=== PATIENT | male | born 1935 | race Caucasian/White ===

== ENCOUNTER 2018-06-06 18:40 | Inpatient (IN) | payer OTHER ==
[~2018-06-06] VITALS: Ht 162.6 cm; Wt 63.6 kg
[~2018-06-06 18:40] MED LIST: CALCIUM600 M3 PO; GLIPIZIDE5 M2 PO; LISINOPRIL5 M1 PO; METFORMIN HCL1000 M1 PO; METOPROLOL SUCC50 M2 PO; SIMVASTATIN10 M1 PO; VITAMIN B-121000 MC3 PO; VITAMIN C500 M7 PO; VITAMIN D31000 UNI1 PO; WARFARIN SODIUM5 M1 PO
[2018-06-06 20:48] LABS: ABSOLUTE BASOPHIL COUNT 0 /CUMM (0.0-0.2); ABSOLUTE EOSINOPHIL COUNT 0.1 /CUMM (0.0-0.7); ABSOLUTE GRANULOCYTE CT 5.3 /CUMM (1.4-6.5); ABSOLUTE LYMPH COUNT 0.4 /CUMM (1.2-3.4); ABSOLUTE MONOCYTE COUNT 0.8 /CUMM (0.10-0.60); BASOPHIL % 0.1 % (0.0-2.0); EOSINOPHIL % 1.4 % (0-5); GRANULOCYTE % 79.2 % (42.2-75.2); HEMATOCRIT 31.9 % (42-52); MEAN CORPUSCULAR HGB 31.1 PG (27.0-31.0); MEAN CORPUSCULAR HGB CONC 33.8 G/DL (33.0-37.0); MEAN CORPUSCULAR VOLUME 92.1 FL (80.0-94.0); MEAN PLATELET VOLUME 7.3 FL (7.4-10.4); PLATELET COUNT 272 /CUMM (130-400); RBC DISTRIBUTION WIDTH 17.1 % (11.5-14.5); RED BLOOD CELL CT 3.46 /CUMM (4.70-6.10); WHITE BLOOD CELL COUNT 6.7 /CUMM (4.8-10.8)
[2018-06-06 21:21] LABS: PT 28.9 SEC (9.4-12.5); PTT 35 SEC (25-37)
[2018-06-06] MEDS ORDERED: LOPERAMIDE2 M2 PO (21:25)
[2018-06-06] MEDS ORDERED: FUROSEMIDE20 M1 PO (21:25)
[2018-06-06] MEDS ORDERED: MULTIVITAMINS1 EAC9 PO (21:26)
[2018-06-06] MEDS ORDERED: CALCIUM600 M3 PO (21:26)
[2018-06-06] MEDS ORDERED: POTASSIUM CHLO10 ME4 PO (21:28)
--- NOTE | 2018-06-06 22:52 | ED GENERAL ADULT ---
History of Present Illness General Chief Complaint: General Adult Stated Complaint: BURNING W/URINATION,ABD PAIN,DIARRHEA Source: patient, family Exam Limitations: no limitations Vital Signs & Intake/Output Vital Signs & Intake/Output Vital Signs Date Time Temp Pulse Resp B/P B/P Pulse O2 O2 Flow FiO2 Mean Ox Delivery Rate 06/06 2258 98.6 65 20 115/73 97 Room Air 06/06 2051 98.0 88 16 123/67 96 06/06 1847 96.5 75 18 122/78 96 Room Air Allergies Coded Allergies: NO KNOWN ALLERGIES (12/03/11) Reconcile Medications Calcium (Elemental-Fr Calcarb) (Calcium) (Unknown Strength) TABLET (Unknown Dose) PO DAILY SUPPLEMENT (Reported) Furosemide 20 MG TABLET 1 TAB PO DAILY DIURETIC (Reported) Glipizide 5 MG TABLET 1 TAB PO BID DM (Reported) Lisinopril 5 MG TABLET 1 TAB PO DAILY HTN (Reported) Loperamide HCl (Loperamide) 2 MG CAPSULE 1 CAP PO DAILY STOOLS (Reported) Metformin HCl 1,000 MG TABLET 1 TAB PO BID DM (Reported) Metoprolol Succinate 50 MG TAB.ER.24H 1 TAB PO DAILY HEART/BP (Reported) Multiple Vitamin (Multivitamins) 1 EACH TABLET 1 TAB PO DAILY SUPPLEMENT ( Reported) Potassium Chloride (Unknown Strength) TABLET.ER (Unknown Dose) UNKNOWN ( Reported) Warfarin Sodium 5 MG TABLET 1 TAB PO DAILY BLOOD THINNER (Reported) Triage Note: 83M WITH IRREGULARITY W URINATION FOR A WHILE AND DIARRHEA SINCE YESTERDAY. DENIES FEVER. HAD HEMATURIA A WEEK AGO, HAD U/S W DR RODRIGUEZ WHICH CAME BACK OK. REPORTS THAT THE URGE TO VOID AND THE PAIN W VOIDING. Triage Nurses Notes Reviewed? yes Onset: Gradual Duration: day(s): Timing: constant HPI: 83-year-old male with a history of A. fib (on Coumadin), hypertension, hyperlipidemia, diabetes presenting with dysuria, hematuria, and decreased urinary output 1 week. Patient now has watery diarrhea since yesterday. Reports 7 episodes of diarrhea since yesterday. Denies fevers, abdominal pain, nausea, vomiting, melena, hematochezia. No recent travel, sick contacts, antibiotic use, hospitalizations, or foul foods. Denies chest pain or shortness of breath. (Chay ADLER,Irene) Past History Travel History Traveled to [place] past 21 day No Medical History Any Pertinent Medical History? see below for history Cardiovascular: AFIB, hypertension, hyperlipidemia Endocrine: diabetes Cancer(s): MELANOMA ; PROSTATE Tetanus Vaccine: 12/21/17 Surgical History Surgical History: non-contributory Psychosocial History Who do you live with Spouse What is your primary language Northern Irish Tobacco Use: Quit >30 days ago ETOH Use: denies use Family History Hx Contributory? No (Irene Kingsley) Review of Systems Review of Systems Constitutional: Reports: no symptoms. EENTM: Reports: no symptoms. Respiratory: Reports: no symptoms. Cardiovascular: Reports: no symptoms. GI: Reports: see HPI. Genitourinary: Reports: see HPI. Musculoskeletal: Reports: no symptoms. Skin: Reports: no symptoms. Neurological/Psychological: Reports: no symptoms. Hematologic/Endocrine: Reports: no symptoms. Immunologic/Allergic: Reports: no symptoms. All Other Systems: Reviewed and Negative (Irene Kingsley) Physical Exam Physical Exam General Appearance: well developed/nourished, no apparent distress, alert, awake , comfortable Comments: Gen.: Well-nourished, well-developed, no acute distress. Head: Normocephalic, atraumatic. Eyes: Normal inspection bilaterally Ears: Normal inspection bilaterally Nose: Normal inspection Neck: Normal inspection Lungs: clear to auscultation bilaterally, normnal breath sounds Heart: Regular rate, irregular rhythm Abdomen: soft and non-tender Back: No CVA tenderness Rectal exam, brown guaiac negative stool Extremities: Normal inspection Neurologic: alert and oriented x3, steady gait Skin: warm and dry Psychiatric: Normal mood and affect, no apparent delusions or hallucinations, behavior appropriate Core Measures ACS in differential dx? No CVA/TIA Diagnosis: No Sepsis Present: No Sepsis Focused Exam Completed? No (Irene Kingsley) Progress Differential Diagnoses I considered the following diagnoses in my evaluation of the patient: [UTI versus pyelonephritis versus BPH versus viral colitis/enteritis versus bacterial colitis/enteritis versus GI bleed vs sepsis] Plan of Care: Orders Procedure Date/time Status Consistent Carbohydrate 2 06/07 B Active LACTIC ACID 06/06 2308 Active OXYGEN SETUP (GEN) 06/06 2241 Active Saline Lock 06/06 2241 Active Admit to inpatient 06/06 2241 Active Patient Data 08/18 2241 Active Activity/Ambulation 06/06 2241 Active Code Status 06/06 2241 Active XRY-CHEST XRAY, TWO VIEWS 06/06 2200 Active Add-on Test (ER Only) 06/06 2157 Active Saline Lock 06/06 2125 Active Add-on Test (ER Only) 06/06 2125 Active Vital Signs 06/06 2125 Active Telemetry/Side Laster Tack 06/06 2125 Active BLOOD CULTURE 06/06 2125 Active EKG 06/06 2125 Active Add-on Test (ER Only) 06/06 2103 Active Intake & Output 06/06 2045 Active PARTIAL THROMBOPLASTIN TIME 06/06 2044 Complete PROTHROMBIN TIME 06/06 2044 Complete CULTURE,URINE 06/06 2041 Active TROPONIN LEVEL 06/06 2034 Complete B-TYPE NATRIURETIC PEP (BNP) 06/06 2034 Complete URINALYSIS 06/06 2008 Complete LIPASE 06/06 2008 Complete LACTIC ACID 06/06 2008 Complete COMPREHENSIVE METABOLIC PANEL 06/06 2008 Complete CBC WITHOUT DIFFERENTIAL 06/06 2008 Complete Current Medications Sig/Vic Start time Last Medication Dose Stop Time Status Admin Sodium Chloride 1,769.01 ML ONCE 06/06 2130 AC (Normal Saline 0.9%) Laboratory Tests 06/06/182043: PT 28.9 H, INR 2.63 H, APTT 35 06/06/182040: Urine Color YEL, Urine Clarity CLDY H, Urine pH 6.0, Ur Specific [place] 1.020, Urine Protein 30 H, Urine Ketones NEG, Urine Nitrite POS H, Urine Bilirubin NEG, Urine Urobilinogen 0.2, Ur Leukocyte Esterase LARGE H, Ur Microscopic SEDIMENT EXAMINED, Urine RBC 1-3, Urine WBC > 75 H, Urine Bacteria FEW H, Urine Hemoglobin MOD H, Urine Glucose NEG 06/06/182033: Anion Gap 16, Estimated GFR 32 L, BUN/Creatinine Ratio 34.5 H, Glucose 88, Lactic Acid 3.1 H, Calcium 9.6, Total Bilirubin 0.7, AST 24, ALT 36, Alkaline Phosphatase 63, Troponin I 0.12 *H, Ibe-R-Libnteejahx Pept 01173 H, Total Protein 7.6, Albumin 4.4, Globulin 3.2, Albumin/Globulin Ratio 1.4, Lipase 59, CBC w Diff NO MAN DIFF REQ, RBC 3.46 L, MCV 92.1, MCH 31.1 H, MCHC 33.8, RDW 17.1 H, MPV 7.3 L, Gran % 79.2 H, Lymphocytes % 6.6 L, Monocytes % 12.7 H, Eosinophils % 1.4, Basophils % 0.1, Absolute Granulocytes 5.3, Absolute Lymphocytes 0.4 L, Absolute Monocytes 0.8 H, Absolute Eosinophils 0.1, Absolute Basophils 0 Microbiology 06/06 2149 BLOOD: Blood Culture - RECD 06/06 2135 BLOOD: Blood Culture - RECD 06/06 2041 URINE ROUT: Urine Culture - RECD EKG shows rate controlled A. fib in the 60s, troponin elevated to 0.12. Patient denies any chest pain or shortness of breath. His INR is therapeutic and he was given 325 mg of aspirin. He is followed by Dr. Torres for cardiology. Discussed with Dr. Thurston who is covering for Dr. Torres. Urine is suspicious for UTI, covered with ceftriaxone and urine culture sent, BC 's sent. Lactic acid elevated to 3.1. Given fluid boluses and will recheck. Labs also show acute worsening of renal function with a creatinine of 2.0. Elevated BNP at over 33,000, family denies any known history of prior CHF, but does state he is currently on 20 mg of Lasix which he takes daily. Lungs are clear, patient denies any shortness of breath. Low concern for acute failure. Patient will be admitted to telemetry. Initial ED EKG: AFIB (Irene Kingsley) Departure Departure Disposition: STILL A PATIENT Condition: Stable Clinical Impression Primary Impression: UTI (urinary tract infection) Secondary Impressions: QUINTIN (acute kidney injury), Elevated brain natriuretic peptide (BNP) level, Elevated troponin Referrals: Nivia ROSEN,Lisy Owen (PCP/Family) Departure Forms: Customer Survey General Discharge Information Admission Note Spoke With: Nixon Cerda MD Documentation of Exam: Documentation of any treatments & extenuating circumstances including Concerns Regarding Discharge (functional status, medication knowledge or non-compliance, living conditions, etc.) that warrant an admission rather than observation: [ Hemodynamic monitoring, telemetry monitoring, serial EKGs, serial troponins, cardiology consultation, IV antibiotics, follow-up urine cultures, IV fluids, serial chemistries, urology consultation] (Irene Kingsley) PA/EDGE GRINDER MACHINE Co-Sign Statement Statement: ED Attending supervision documentation- x I saw and evaluated the patient. I have also reviewed all the pertinent lab results and diagnostic results. I agree with the findings and the plan of care as documented in the PA's/EDGE GRINDER MACHINE's documentation. Generalized weakness fever dysuria hematuria diarrhea with QUINTIN, hyperkalemia, UTI. elevated troponn [] I have reviewed the ED Record and agree with the PA's/EDGE GR[employer]ER MACHINE's documentation. [] Additions or exceptions (if any) to the PAs/EDGE GRINDER MACHINE's note and plan are summarized below: [] (Jairon ROSEN,Christopher) Critical Care Note Critical Care Note Critical Care Time: non-applicable (Chay ADLER,Irene)
--- NOTE | 2018-06-06 22:52 | History & Physical ---
Sandeep Velez 06/06/18 2256: General Information and HPI MD Statement: I have seen and personally examined JERE LEVINE and documented this H&P. The patient is a 83 year old M who presented with a patient stated chief complaint of URINATION PAIN AND DIFFICULTY. Source of Information: patient, family, old records Exam Limitations: poor historian (patient and family) History of Present Illness: 83-year-old male past medical history of atrial fibrillation, hypertension, hyperlipidemia, diabetes, melanoma, prostate cancer who presents for decreased urinary output and pain for 2 months and new onset watery diarrhea for the past 2 days. The symptoms started with urinary urgency and frequency which was evaluated by Dr. Ngo as outpatient. The patient also noticed some blood in his urine. Patient was started on Flomax at the end of April; after no improvement he stopped taking the Flomax and was started on oxybutynin instead. Hematuria had resolved by this visit he was told there was no infection. According to the patient and his family the symptoms have been even worse since starting the oxybutynin. He has been voiding minimal amounts with increased frequency, urgency and dysuria. He denies history of UTI or stones in the past, denies fevers, chills, flank pain, or other symptoms. Patient does report becoming anxious about his urinary symptoms. With regards to diarrhea, patient denies any recent antibiotics, abdominal pain, hospitalizations, or sick contacts. In the ED, patient was found to have AK on CKD. His BMP was elevated to 34,000, troponin positive at 0.12, lactic acid 3.1, and urinalysis suggestive of infection. Patient was admitted to telemetry for UTI and elevated troponins. Allergies/Medications Compliance With Home Meds: GOOD Past History Travel History Traveled to [place] past 21 day No Medical History Cardiovascular: AFIB, hypertension, hyperlipidemia Endocrine: diabetes Cancer(s): MELANOMA ; PROSTATE Tetanus Vaccine: 12/21/17 Surgical History Surgical History: non-contributory Past Family/Social History Family History Relations & Conditions if any FATHER FH: kidney failure BROTHER FH: myocardial infarction Psychosocial History ETOH Use: denies use Functional Ability ADLs Independent: dressing, eating, toileting, bathing. Ambulation: cane IADLs Independent: shopping, housework, finances, food prep, telephone. Needs Assist: transportation, medication admin. 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 Exam & Diagnostic Data Last 24 Hrs of Vital Signs/I&O Vital Signs Date Time Temp Pulse Resp B/P B/P Pulse O2 O2 Flow FiO2 Mean Ox Delivery Rate 06/07 0059 97.8 73 20 148/72 94 Room Air 06/06 2258 98.6 65 20 115/73 97 Room Air 06/061 98.0 88 16 123/67 96 06/06 1847 96.5 75 18 122/78 96 Room Air Intake & Output 06/07 0800 06/07 0000 06/06 1600 Intake Total 1000 Output Total 100 Balance 900 Intake, IV 1000 Output, Urine 100 Patient 139 lb 130 lb Weight Weight Bed scale Measurement Method Physical Exam General Appearance Alert, Oriented X3, No Acute Distress Skin No Rashes, No Breakdown, No Significant Lesion Skin Temp/Moisture Exam: Warm/Dry HEENT Atraumatic, PERRLA, EOMI Neck Supple, No JVD, No thryomegaly Cardiovascular Regular Rate, Normal S1, Normal S2 Lungs Clear to Auscultation, Normal Air Movement Abdomen Normal Bowel Sounds, Soft, No Tenderness Neurological Normal Gait, Normal Speech Last 24 Hrs of Labs/Torres: Laboratory Tests 06/07/18 0635: CBC w Diff Pending, WBC Pending, RBC Pending, Hgb Pending, Hct Pending, MCV Pending, MCH Pending, MCHC Pending, RDW Pending, Plt Count Pending, MPV Pending 06/07/18 0115: Troponin I 0.13 *H 06/06/18 2311: Lactic Acid 2.2 H 06/06/182043: PT 28.9 H, INR 2.63 H, APTT 35 06/06/182040: Urine Color YEL, Urine Clarity CLDY H, Urine pH 6.0, Ur Specific [place] 1.020, Urine Protein 30 H, Urine Ketones NEG, Urine Nitrite POS H, Urine Bilirubin NEG, Urine Urobilinogen 0.2, Ur Leukocyte Esterase LARGE H, Ur Microscopic SEDIMENT EXAMINED, Urine RBC 1-3, Urine WBC > 75 H, Urine Bacteria FEW H, Urine Hemoglobin MOD H, Urine Glucose NEG 06/06/182033: Anion Gap 16, Estimated GFR 32 L, BUN/Creatinine Ratio 34.5 H, Glucose 88, Lactic Acid 3.1 H, Calcium 9.6, Total Bilirubin 0.7, AST 24, ALT 36, Alkaline Phosphatase 63, Troponin I 0.12 *H, [id number] Pept 56765 H, Total Protein 7.6, Albumin 4.4, Globulin 3.2, Albumin/Globulin Ratio 1.4, Lipase 59, CBC w Diff NO MAN DIFF REQ, RBC 3.46 L, MCV 92.1, MCH 31.1 H, MCHC 33.8, RDW 17.1 H, MPV 7.3 L, Gran % 79.2 H, Lymphocytes % 6.6 L, Monocytes % 12.7 H, Eosinophils % 1.4, Basophils % 0.1, Absolute Granulocytes 5.3, Absolute Lymphocytes 0.4 L, Absolute Monocytes 0.8 H, Absolute Eosinophils 0.1, Absolute Basophils 0 Microbiology 06/07 0544 STOOL: Clostridium difficile Toxin A & B - ORD 06/06 2149 BLOOD: Blood Culture - RECD 06/06 2135 BLOOD: Blood Culture - RECD 06/06 2041 URINE ROUT: Urine Culture - RECD Diagnostic Data EKG Results Rate controlled Afib in 60s CXR Results Stable mildly enlarged cardiac silhouette. No acute airspace disease. Other Results Abd US - Nonspecific stranding about the urinary bladder wall. There is mild urinary bladder wall thickening in the setting of a partially filled urinary bladder. This is nonspecific, though consider correlation with urinalysis to evaluate for signs of cystitis. Sigmoid diverticulosis without evidence of diverticulitis. Abdominal aortic aneurysm with an aortobifemoral stent in place. Assessment/Plan Assessment: 83-year-old male past medical history of atrial fibrillation, hypertension, hyperlipidemia, diabetes, melanoma, prostate cancer who presents for decreased urinary output and pain for 2 months and new onset watery diarrhea for the past 2 days. Problem list/plan: Urinary tract infection Diarrhea QUINTIN on CKD -Creatinine to 2.0 over baseline 1.5 -Bladder ultrasound <200cc retained urine post void -Avoid nephrotoxins -Check urine lytes and FeNa -1 L NS ordered -F/U renal function tests Hyperkalemia -Mildly elevated; follow up in am Chronic conditions - HTN, HLD, DM -Continue home medicines except for lasix -Accuchecks TIDAC/HS -Hold metformin, glipizide -SS insulin DVT prophylaxis: On coumadin, ALPS Heart healthy diet Patient is full code As Ranked By This Provider Problem List: 1. QUINTIN (acute kidney injury) 2. UTI (urinary tract infection) 3. Elevated troponin Core Measures/Misc (07/06) Acute Coronary Syndrome ACS Diagnosis: Yes Last Known EF % 55 Congestive Heart Failure Congestive Heart Failure Diagnosis No Cerebrovascular Accident CVA/TIA Diagnosis: No VTE (View Protocol) VTE Risk Factors Age>40 No Mechanical VTE Prophylaxis d/t N/A MechProphylax Ordered No VTE Pharm Prophylaxis d/t NA PharmProphylax ordered Sepsis (View protocol) Sepsis Present: No If YES complete Sepsis Event Note If YES complete Sepsis Event Note Flavio Kenney MD 06/07/18 0008: General Information and HPI MD Statement: I have seen and personally examined JERE LEVINE and documented this H&P. The patient is a 83 year old M who presented with a patient stated chief complaint of difficulty urinating. Source of Information: patient, family, old records Exam Limitations: no limitations History of Present Illness: 83 year old male with PMH significant for atrial fibrillation on coumadin s/p PPM 2013, HTN, HLD, DM, CAD s/p CABG ~1999, TIA, AAA repair, and prostate cancer s/p radiation ~5-6 years ago presents with complaints of dysuria and frequency. The patient's symptoms have been present for aprroximately 1-2 months and worsening. He started with urinary urgency and frequency which was evaluated by Dr. Ngo as an outpatient. He also had noted some hematuria. Dr. Ngo started him on tamsulosin at the end of April. After no improvement in his symptoms after 7-10 days, he stopped taking the flomax and was started on oxybutynin 5mg po bid. Reportedly, the hematuria had resolved by this visit with Dr. Ngo and he was told that there was no infection. He also reportedly had an ultrasound that was unremarkable. According to the patient, his symptoms have been even worse since starting the ditropan. He has been voiding minimal amounts with increasing frequency, urgency, and dysuria. He denied any history of stones or urinary tract infections in the past. He denies any fevers, chills , flank pain, or other symptoms on review of systems. He had radiation therapy for his prostate cancer with Dr. Carpenter at [facility] but was unable to provide anymore details. He has had no chest pain, palpitations, or dyspnea. He does report becoming extremely anxious from his urinary symptoms. He also has developed diarrhea that started yesterday, watery, approximately seven episodes. He denies any recent anitbiotics or abdominal pain. In the ED, his labs were notable for anemia, hyperkalemia, and acute kidney injury (creatinine elevated to 2.0 with baseline of 1.5). His proBNP was elevated to 34,000, troponin positive at 0.12, lactic acid 3.1 and urinalysis cloudy, >75 WBCs, + nitrite and leukocyte esterase. He was treated with aspirin 325mg, NS x 500c, and ceftriaxone 1g and admitted to telemetry for urinary tract infection and elevated troponins. Allergies/Medications Compliance With Home Meds: GOOD Past History Travel History Traveled to [facility] past 21 day No Medical History Neurological: TIA Cardiovascular: aortic aneurysm, AFIB, CAD, hypertension, hyperlipidemia, myocardial infarction Renal: chronic kidney disease Endocrine: diabetes Cancer(s): melanoma, prostate cancer Surgical History Surgical History: CABG, AAA repair Past Family/Social History Psychosocial History Where do you live? Home Who Do You Live With? spouse Services at Home: None Primary Language: Norwegian Smoking Status: Never Smoked ETOH Use: denies use Illicit Drug Use: denies illicit drug use Functional Ability ADLs Independent: dressing, eating, toileting, bathing. Ambulation: cane IADLs Needs Assist: transportation, medication admin. 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 Denies: chills, fever. EENTM: Reports: no symptoms. Cardiovascular: Denies: chest pain, orthopena, palpitations. Respiratory: Denies: cough, short of breath, sputum production. GI: Reports: diarrhea. Denies: abdominal pain, melena, nausea, vomiting. Genitourinary: Reports: dysuria, frequency, hematuria, hesitation, nocturia, pain, urgency. Musculoskeletal: Reports: no symptoms. Skin: Reports: no symptoms. Neurological/Psychological: Reports: no symptoms. Hematologic/Endocrine: Reports: no symptoms. Immunologic/Allergic: Reports: no symptoms. All Other Systems: Reviewed and Negative Exam & Diagnostic Data Last 24 Hrs of Vital Signs/I&O Vital Signs Date Time Temp Pulse Resp B/P B/P Pulse O2 O2 Flow FiO2 Mean Ox Delivery Rate 06/07 0059 97.8 73 20 148/72 94 Room Air 06/06 2258 98.6 65 20 115/73 97 Room Air 06/06 2051 98.0 88 16 123/67 96 06/06 1847 96.5 75 18 122/78 96 Room Air Intake & Output 06/07 0800 06/07 0000 06/06 1600 Intake Total 1000 Output Total 100 Balance 900 Intake, IV 1000 Output, Urine 100 Patient 63.049 kg 58.967 kg Weight Weight Bed scale Measurement Method Physical Exam General Appearance Alert, Oriented X3, Cooperative, No Acute Distress Skin Temp/Moisture Exam: Warm/Dry Sepsis Skin Exam (color): Normal for Ethnicity HEENT Atraumatic, PERRLA, EOMI Neck Supple, No JVD Cardiovascular Normal S1, Normal S2, irregular rhythm, PPM LCW Lungs Clear to Auscultation, Normal Air Movement Abdomen Normal Bowel Sounds, Soft, No Tenderness, No Masses Neurological Normal Speech, Strength at 5/5 X4 Ext, Normal Tone Extremities No Clubbing, No Cyanosis, No Edema, Normal Pulses Last 24 Hrs of Labs/Torres: Laboratory Tests 06/07/18 0115: Troponin I 0.13 *H 06/06/182310: Lactic Acid 2.2 H 06/06/182043: PT 28.9 H, INR 2.63 H, APTT 35 06/06/182040: Urine Color YEL, Urine Clarity CLDY H, Urine pH 6.0, Ur Specific [place] 1.020, Urine Protein 30 H, Urine Ketones NEG, Urine Nitrite POS H, Urine Bilirubin NEG, Urine Urobilinogen 0.2, Ur Leukocyte Esterase LARGE H, Ur Microscopic SEDIMENT EXAMINED, Urine RBC 1-3, Urine WBC > 75 H, Urine Bacteria FEW H, Urine Hemoglobin MOD H, Urine Glucose NEG 06/06/182033: Anion Gap 16, Estimated GFR 32 L, BUN/Creatinine Ratio 34.5 H, Glucose 88, Lactic Acid 3.1 H, Calcium 9.6, Total Bilirubin 0.7, AST 24, ALT 36, Alkaline Phosphatase 63, Troponin I 0.12 *H, [id number] Pept 50870 H, Total Protein 7.6, Albumin 4.4, Globulin 3.2, Albumin/Globulin Ratio 1.4, Lipase 59, CBC w Diff NO MAN DIFF REQ, RBC 3.46 L, MCV 92.1, MCH 31.1 H, MCHC 33.8, RDW 17.1 H, MPV 7.3 L, Gran % 79.2 H, Lymphocytes % 6.6 L, Monocytes % 12.7 H, Eosinophils % 1.4, Basophils % 0.1, Absolute Granulocytes 5.3, Absolute Lymphocytes 0.4 L, Absolute Monocytes 0.8 H, Absolute Eosinophils 0.1, Absolute Basophils 0 Microbiology 06/06 2149 BLOOD: Blood Culture - RECD 06/06 2135 BLOOD: Blood Culture - RECD 06/06 2041 URINE ROUT: Urine Culture - RECD Diagnostic Data EKG Results afib, intermittently A paced, no ischemic changes CXR Results The cardiac silhouette is stable. Intact midline sternal wires are present. Pacer leads are in place. There are neither pleural effusions nor pneumothoraces. There is mild accentuation of interstitial markings. The osseous structures are relatively stable with moderate degenerative change within the thoracic spine. IMPRESSION: Stable mildly enlarged cardiac silhouette. No acute airspace disease. Other Results CT abdomen pelvis without contrast Nonspecific stranding about the urinary bladder wall. There is mild urinary bladder wall thickening in the setting of a partially filled urinary bladder. This is nonspecific, though consider correlation with urinalysis to evaluate for signs of cystitis. Sigmoid diverticulosis without evidence of diverticulitis. Abdominal aortic aneurysm with an aortobifemoral stent in place. Assessment/Plan Assessment: 83 year old male with PMH significant for atrial fibrillation on coumadin s/p PPM 2013, HTN, HLD, DM, CAD s/p CABG ~1999, CKD Stage III, TIA, AAA repair, and prostate cancer s/p radiation ~5-6 years ago presents with complaints of worsening dysuria and urinary frequency and one day history of diarrhea. Urinary tract infection: Worsening urinary symptoms Urinalysis >75WBCs, positive nitrite and leukocyte esterase No fever or CVA tenderess CT abdomen negative for hydronephrosis, perinephric stranding or nephrolithiasis Ceftriaxone 1g IV daily Follow up urine culture and blood cultures Urology consultation with Dr. Ngo History of prostate cancer s/p radiation Elevated troponins: History of CAD s/p CABG Mildly elevated to 0.13 in the setting of infection and elevated creatinine proBNP significantly elevated to 34,000, but no evidence of heart failure, lasix held No acute ischemic EKG changes, give ASA 325mg in the ED No complaints of chest pain or cardiovascular symptoms, possible type II NSTEMI Continue metoprolol XL Add aspirin 81mg and atorvastatin Cardiology consultation with Dr. Wilfred Nogueira Check serial troponins and EKGs to evaluate for myocardial ischemia Consider repeat echocardiogram Acute kidney injury on chronic kidney disease stage III: Creatinine elevated to 2.0, likely prerenal with diarrhea, may be some component of post renal from urinary retention in the setting of infection CT Abdomen Pelvis shows no hydronephrosis Bladder ultrasound < 200cc of retained urine post void Baseline is ~1.5 Avoid nephrotoxins Check urine electrolytes and FeNA 1 liter of normal saline ordered Follow up repeat renal function tests Diarrhea: Check C diff Hyperkalemia: Mildly elevated to 5.4, patient is on a potassium supplement with furosemide at home Hold potassium supplementation Check repeat electrolytes in the morning Atrial fibrillation: s/p 2013 Coumadin per INR Continue metoprolol for rate control HTN: Continue ACEi and metoprolol, lasix on hold HLD: Start statin therapy DM: Accuchecks TIDAC/HS Hold metformin and glipizide Start sliding scale insulin Heart healthy diet DVT ppx-on coumadin Full code As Ranked By This Provider Problem List: 1. QUINTIN (acute kidney injury) 2. Elevated troponin 3. UTI (urinary tract infection) 4. Elevated brain natriuretic peptide (BNP) level Core Measures/Misc (07/06) Acute Coronary Syndrome ACS Diagnosis: Yes Last Known EF % 55 Congestive Heart Failure Congestive Heart Failure Diagnosis No Cerebrovascular Accident CVA/TIA Diagnosis: No VTE (View Protocol) VTE Risk Factors Age>40 No Mechanical VTE Prophylaxis d/t N/A MechProphylax Ordered No VTE Pharm Prophylaxis d/t NA PharmProphylax ordered Sepsis (View protocol) Sepsis Present: No If YES complete Sepsis Event Note If YES complete Sepsis Event Note [place] 06/07/18 0352: General Information and HPI Statement: I have seen and personally examined JERE LEVINE and documented this H&P. The patient is a 83 year old M who presented with a patient stated chief complaint of []. Source of Information: family, old records Allergies/Medications Allergies: Coded Allergies: NO KNOWN ALLERGIES (12/03/11) Home Med list Calcium (Elemental-Fr Calcarb) (Calcium) (Unknown Strength) TABLET (Unknown Dose) PO DAILY SUPPLEMENT (Reported) Furosemide 20 MG TABLET 1 TAB PO DAILY DIURETIC (Reported) Glipizide 5 MG TABLET 1 TAB PO BID DM (Reported) Lisinopril 5 MG TABLET 1 TAB PO DAILY HTN (Reported) Loperamide HCl (Loperamide) 2 MG CAPSULE 1 CAP PO DAILY STOOLS (Reported) Metformin HCl 1,000 MG TABLET 1 TAB PO BID DM (Reported) Metoprolol Succinate 50 MG TAB.ER.24H 1 TAB PO DAILY HEART/BP (Reported) Multiple Vitamin (Multivitamins) 1 EACH TABLET 1 TAB PO DAILY SUPPLEMENT ( Reported) Potassium Chloride (Unknown Strength) TABLET.ER 10 MEQ PO DAILY SUPPLEMENT ( Reported) Warfarin Sodium 5 MG TABLET 1 TAB PO DAILY BLOOD THINNER (Reported) Past History Medical History Cardiovascular: AFIB, hypertension, hyperlipidemia Endocrine: diabetes Cancer(s): NONE Past Family/Social History Psychosocial History Smoking Status: Former Smoker ETOH Use: denies use Illicit Drug Use: denies illicit drug use Review of Systems Review of Systems Constitutional: Reports: see HPI. Exam & Diagnostic Data Last 24 Hrs of Vital Signs/I&O Vital Signs Date Time Temp Pulse Resp B/P B/P Pulse O2 O2 Flow FiO2 Mean Ox Delivery Rate 06/07 0059 97.8 73 20 148/72 94 Room Air 06/06 2258 98.6 65 20 115/73 97 Room Air 06/06 2051 98.0 88 16 123/67 96 06/06 1847 96.5 75 18 122/78 96 Room Air Intake & Output 06/07 0800 06/07 0000 06/06 1600 Intake Total 1000 Output Total 100 Balance 900 Intake, IV 1000 Output, Urine 100 Patient 139 lb 130 lb Weight Weight Bed scale Measurement Method Physical Exam General Appearance Alert, Oriented X3 Skin No Rashes, No Breakdown HEENT Atraumatic, PERRLA, EOMI Neck Supple, No JVD Cardiovascular Regular Rate, Normal S1, Normal S2 Lungs Clear to Auscultation, Normal Air Movement Abdomen Normal Bowel Sounds, Soft, No Tenderness Neurological Normal Gait, Normal Speech Core Measures/Misc (07/06) Sepsis (View protocol) If YES complete Sepsis Event Note If YES complete Sepsis Event Note Attending MD Review Statement Attending Statement Attending MD Statement: examined this patient, discuss w/resident/PA/ASSISTANT FOOTBALL COACH, agreed w/resident/PA/ASSISTANT FOOTBALL COACH, discussed with case mgmt Attending Assessment/Plan: This patient is an 83 year old male with a significant past medical history for atrial fibrillation on coumadin, HTN, HLD, DM, CAD s/p CABG ~1999, TIA, AAA repair, and prostate cancer s/p radiation ~5-6 years ago presents with complaints of dysuria and frequency. The patient's symptoms have been present for approximately 1-2 months and worsening. He started with urinary urgency and frequency which was evaluated by Dr. Ngo as an outpatient. He also had noted some hematuria. Dr. Ngo started him on tamsulosin at the end of April. After no improvement in his symptoms after 7-10 days, he stopped taking the flomax and was started on oxybutynin 5mg po bid. His symptoms have been even worse since starting the ditropan. He has been voiding minimal amounts with increasing frequency, urgency, and dysuria. He denied any history of stones or urinary tract infections in the past. He also has developed diarrhea that started yesterday, watery, approximately seven episodes. In the ED, his vitals were stable, labs were notable for anemia 10.8, INR 2.63, hyperkalemia 5.4, and acute kidney injury (creatinine elevated to 2.0 with baseline of 1.5). His BNP was elevated to 34,000, troponin positive at 0.12, lactic acid 3.1 and urinalysis cloudy, >75 WBCs, +nitrite and leukocyte esterase. He was treated with aspirin 325mg, NS x 500c, and ceftriaxone 1g and admitted to telemetry for urinary tract infection and elevated troponins. Continue antibiotics, cardiology consult for elevated BNP, urology consult and rule out ACS with serial EKG/troponins. FULL CODE
--- NOTE | 2018-06-06 23:13 | RADIOLOGY REPORT ---
EXAMINATION: CHEST 2 VIEWS CLINICAL INFORMATION: Infection. Hypovolemia. Elevated lactate. COMPARISON: December 03, 2011. TECHNIQUE: Frontal and lateral views of the chest were obtained. FINDINGS: The cardiac silhouette is stable. Intact midline sternal wires are present. Pacer leads are in place. There are neither pleural effusions nor pneumothoraces. There is mild accentuation of interstitial markings. The osseous structures are relatively stable with moderate degenerative change within the thoracic spine. IMPRESSION: Stable mildly enlarged cardiac silhouette. No acute airspace disease.
[2018-06-07 00:59] VITALS: BP 148/72
--- NOTE | 2018-06-07 02:32 | CT SCAN REPORT ---
EXAMINATION: CT ABDOMEN AND PELVIS WITHOUT CONTRAST CLINICAL INFORMATION: Hydronephrosis. Concern for urinary retention. COMPARISON: March 12, 2014. TECHNIQUE: Contiguous axial thin section helical images of the abdomen and pelvis were performed without oral or IV contrast. The data set was reformatted in the coronal and sagittal planes and reviewed on an independent workstation. DLP: 314 mGy-cm. FINDINGS: The visualized lung bases are clear. The visualized portions of the heart are unremarkable. The liver is of normal size and attenuation without focal lesions nor intrahepatic biliary ductal dilation. A normal gallbladder is identified. There is no wall thickening or discernible pericholecystic fluid. The spleen, pancreas, adrenal glands are unremarkable. Both kidneys are of normal size and attenuation without hydronephrosis or nephrolithiasis. There is mild bilateral perinephric stranding. There is an infrarenal abdominal aortic aneurysm measuring approximately 5 cm in greatest sagittal AP dimension with an aortobifemoral stent in place. There is no abdominal free fluid. There is neither mesenteric nor retroperitoneal lymphadenopathy. There is sigmoid diverticulosis without evidence of diverticulitis; otherwise, unremarkable unopacified loops of small and large bowel are identified. In normal appendix is identified. There is no pelvic free fluid. The urinary bladder is only partially filled. There is mild diffuse urinary bladder wall thickening with mild nonspecific stranding about the urinary bladder wall. There is neither pelvic nor inguinal lymphadenopathy. Bone windows: Neither sclerotic nor lytic bone lesions are identified. IMPRESSION: Nonspecific stranding about the urinary bladder wall. There is mild urinary bladder wall thickening in the setting of a partially filled urinary bladder. This is nonspecific, though consider correlation with urinalysis to evaluate for signs of cystitis. Sigmoid diverticulosis without evidence of diverticulitis. Abdominal aortic aneurysm with an aortobifemoral stent in place.
[2018-06-07 07:04] VITALS: BP 138/68
[2018-06-07 08:13] LABS: ABSOLUTE BASOPHIL COUNT 0 /CUMM (0.0-0.2); ABSOLUTE EOSINOPHIL COUNT 0 /CUMM (0.0-0.7); ABSOLUTE GRANULOCYTE CT 6.8 /CUMM (1.4-6.5); ABSOLUTE LYMPH COUNT 0.3 /CUMM (1.2-3.4); ABSOLUTE MONOCYTE COUNT 0.6 /CUMM (0.10-0.60); BASOPHIL % 0 % (0.0-2.0); EOSINOPHIL % 0.2 % (0-5); GRANULOCYTE % 87.6 % (42.2-75.2); HEMATOCRIT 30.3 % (42-52); MEAN CORPUSCULAR HGB 31.2 PG (27.0-31.0); MEAN CORPUSCULAR HGB CONC 33.4 G/DL (33.0-37.0); MEAN CORPUSCULAR VOLUME 93.3 FL (80.0-94.0); MEAN PLATELET VOLUME 7.5 FL (7.4-10.4); PLATELET COUNT 243 /CUMM (130-400); RBC DISTRIBUTION WIDTH 16.8 % (11.5-14.5); RED BLOOD CELL CT 3.24 /CUMM (4.70-6.10); WHITE BLOOD CELL COUNT 7.8 /CUMM (4.8-10.8)
--- NOTE | 2018-06-07 09:02 | PN- Housestaff ---
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 fib Subjective: No events per telemetry. No events per nursing. Patient sitting comfortably in no acute distress, family at bedside. Patient reports he does not like drinking warm fluids but will try if water is colder. Patient has no new complaints. Review of Systems Constitutional: Reports: see HPI. Objective Last 24 Hrs of Vital Signs/I&O Vital Signs Date Time Temp Pulse Resp B/P B/P Pulse O2 O2 Flow FiO2 Mean Ox Delivery Rate 06/07 0829 134/70 06/07 0829 134/70 06/07 0704 97.6 68 20 138/68 97 06/07 0059 97.8 73 20 148/72 94 Room Air 06/06 2258 98.6 65 20 115/73 97 Room Air 06/06 2051 98.0 88 16 123/67 96 06/06 1847 96.5 75 18 122/78 96 Room Air Intake & Output 06/07 1600 06/07 0800 06/07 0000 Intake Total 400 1000 Output Total 100 Balance 400 900 Intake, IV 200 1000 Intake, Oral 200 Output, Urine 100 Patient 139 lb 130 lb Weight Weight Bed scale Measurement Method Physical Exam General Appearance: Alert, Cooperative, No Acute Distress Sepsis Skin Exam (color): Normal for Ethnicity HEENT: Atraumatic, EOMI Cardiovascular: Normal S1, Normal S2 Lungs: Clear to Auscultation Abdomen: Normal Bowel Sounds, Soft, No Tenderness Assessment/Plan Assessment: 83 year old male with PMH significant for atrial fibrillation on coumadin s/p PPM 2013, HTN, HLD, DM, CAD s/p CABG ~1999, CKD Stage III, TIA, AAA repair, and prostate cancer s/p radiation ~5-6 years ago presents with complaints of worsening dysuria and urinary frequency and one day history of diarrhea. Urinary tract infection: Worsening urinary symptoms Urinalysis >75WBCs, positive nitrite and leukocyte esterase No fever or CVA tenderess CT abdomen negative for hydronephrosis, perinephric stranding or nephrolithiasis Ceftriaxone 1g IV daily Follow up urine culture and blood cultures Urology consultation with Dr. Huber beth in one week History of prostate cancer s/p radiation Elevated troponins: History of CAD s/p CABG Mildly elevated to 0.13 in the setting of infection and elevated creatinine proBNP significantly elevated to 34,000, but no evidence of heart failure, lasix held No acute ischemic EKG changes, give ASA 325mg in the ED No complaints of chest pain or cardiovascular symptoms, possible type II NSTEMI Continue metoprolol XL Add aspirin 81mg and atorvastatin Echocardiogram per cardiology Acute kidney injury on chronic kidney disease stage III: Creatinine elevated to 2.0, likely prerenal with diarrhea CT Abdomen Pelvis shows no hydronephrosis Bladder ultrasound < 200cc of retained urine post void Baseline is ~1.5 Avoid nephrotoxins NS stopped due to pt clinically presenting volume overloaded Diarrhea: Check C diff Hyperkalemia: Mildly elevated to 5.4, patient is on a potassium supplement with furosemide at home Hold potassium supplementation Repeat electrolytes in the morning Atrial fibrillation: s/p PM 2013 Coumadin per INR Continue metoprolol for rate control HTN: Hold ACEi per Cardiology, continue and metoprolol, lasix on hold HLD: Start statin therapy DM: Accuchecks TIDAC/HS Hold metformin and glipizide Start sliding scale insulin Problem List: 1. QUINTIN (acute kidney injury) 2. Elevated troponin 3. UTI (urinary tract infection) Pain Ratin Pain Location: n/a Pain Goal: Remain pain free Pain Plan: per pathway Tomorrow's Labs & Rationales: INR CBC BEP Sirena ROSEN,Amir 06/07/18 1104: Attending MD Review Statement Attending Statement Attending MD Statement: examined this patient, discuss w/resident/PA/DIESEL ENGINE ERECTOR, agreed w/resident/PA/DIESEL ENGINE ERECTOR, discussed with family, reviewed EMR data (avail), discussed with nursing Attending Assessment/Plan: Pt was seen and evaluated. H&P reviewed. Reports dysuria --cont to monitor, f/u C&S --will need Urology eval
--- NOTE | 2018-06-07 11:59 | Cons- Urology ---
General Information and HPI Consulting Request Date of Consult: 06/07/18 Requested By: Nixon Cerda MD Reason for Consult: Question of urinary retention Source of Information: patient, family Exam Limitations: no limitations History of Present Illness: 83yo male with a PMH of atrial fibrillation, hypertension, hyperlipidemia, diabetes, melanoma, prostate cancer s/p rad seeds who presents for decreased urinary output and pain for 2 months and new onset watery diarrhea for the past 2 days. The symptoms started with urinary urgency and frequency which was evaluated by Dr. Ngo as outpatient. The patient also noticed some blood in his urine. Patient was started on Flomax at the end of April; after no improvement he stopped taking the Flomax and was started on oxybutynin instead. Hematuria had resolved by this visit he was told there was no infection. According to the patient and his family the symptoms have been even worse since starting the oxybutynin. He has been voiding minimal amounts with increased frequency, urgency and dysuria. He denies history of UTI or stones in the past, denies fevers, chills, flank pain, or other symptoms. Patient does report becoming anxious about his urinary symptoms. With regards to diarrhea, patient denies any recent antibiotics, abdominal pain, hospitalizations, or sick contacts. In the ED, patient was found to have AK on CKD. His BMP was elevated to 34,000, troponin positive at 0.12, lactic acid 3.1, and urinalysis suggestive of infection. Patient was admitted to telemetry for UTI and elevated troponins. Urology was asked to evaluate this patient for possible urinary retention. He has been started on IV reocephin but no bladder scan has been performed to see if he is indeed in retention. He has no hx of such but he has a hx of CAP s/p rad seeds which could result in cystitis and OAB sx. Allergies/Medications Allergies: Coded Allergies: NO KNOWN ALLERGIES (12/03/11) Home Med List: Calcium (Elemental-Fr Calcarb) (Calcium) (Unknown Strength) TABLET (Unknown Dose) PO DAILY SUPPLEMENT (Reported) Furosemide 20 MG TABLET 1 TAB PO DAILY DIURETIC (Reported) Glipizide 5 MG TABLET 1 TAB PO BID DM (Reported) Lisinopril 5 MG TABLET 1 TAB PO DAILY HTN (Reported) Loperamide HCl (Loperamide) 2 MG CAPSULE 1 CAP PO DAILY STOOLS (Reported) Metformin HCl 1,000 MG TABLET 1 TAB PO BID DM (Reported) Metoprolol Succinate 50 MG TAB.ER.24H 1 TAB PO DAILY HEART/BP (Reported) Multiple Vitamin (Multivitamins) 1 EACH TABLET 1 TAB PO DAILY SUPPLEMENT ( Reported) Potassium Chloride (Unknown Strength) TABLET.ER 10 MEQ PO DAILY SUPPLEMENT ( Reported) Warfarin Sodium 5 MG TABLET 1 TAB PO DAILY BLOOD THINNER (Reported) Current Medications: Current Medications Sig/Vic Start time Last Medication Dose Route Stop Time Status Admin Acetaminophen 650 MG Q6P PRN 06/07 0015 AC PO Aspirin 0 .STK-MED ONE 06/07 827 DC PO Aspirin 0 .STK-MED ONE 06/06 2206 DC PO Aspirin 325 MG ONCE ONE 06/06 2200 DC 06/06 PO 06/06 Aspirin Buffered 81 MG DAILY 06/07 0900 AC 06/07 PO 0834 Atorvastatin Calcium 40 MG 1700 06/07 1700 AC PO Ceftriaxone Sodium 1,000 MG 2100 06/07 2100 AC IV Ceftriaxone Sodium 0 .STK-MED ONE 06/06 2154 DC .ROUTE Ceftriaxone Sodium 1,000 MG ONCE ONE 06/06 2115 DC 06/06 IV 06/06 2116 215 Insulin Aspart 0 TIDAC 06/07 0800 AC SC Lisinopril 5 MG DAILY 06/07 0900 AC 06/07 PO 0829 Metoprolol Succinate 50 MG DAILY 06/07 0900 AC 06/07 PO 0829 Sodium Chloride 1,000 ML Q10H 06/07 0400 AC 06/07 IV 06/07 1359 0440 Sodium Chloride 1,769.01 ML ONCE 06/06 2130 AC IV Sodium Chloride 500 ML BOLUS ONE 06/06 2115 DC 06/06 IV 06/06 Past History Medical History Blood Transfusion Hx: No Neurological: TIA Cardiovascular: aortic aneurysm, AFIB, CAD, hypertension, hyperlipidemia, myocardial infarction Renal: chronic kidney disease Endocrine: diabetes Cancer(s): melanoma, prostate cancer Surgical History Pertinent Surgical History: CABG, AAA repair, rad seeds for CAP Family History Relations & Conditions If Any: FATHER FH: kidney failure BROTHER FH: myocardial infarction Psychosocial History Where Do You Live? Home Who Do You Live With? spouse Services at Home: None Primary Language: [place] Smoking Status: Never Smoked ETOH Use: denies use Illicit Drug Use: denies illicit drug use Functional Ability ADLs Independent: dressing, eating, toileting, bathing. Ambulation: cane IADLs Independent: shopping, housework, finances, food prep, telephone. Needs Assist: transportation, medication admin. Employment History Employment: Retired Profession/Employer: [employer] Review of Systems Review of Systems Constitutional: Reports: no symptoms. EENTM: Reports: no symptoms. Cardiovascular: Reports: no symptoms. Respiratory: Reports: no symptoms. GI: Reports: diarrhea. Genitourinary: Reports: dysuria, frequency, pain (difficulty c voiding). Musculoskeletal: Reports: no symptoms. Skin: Reports: no symptoms. Neurological/Psychological: Reports: no symptoms. Hematologic/Endocrine: Reports: no symptoms. Immunologic/Allergic: Reports: no symptoms. Exam & Diagnostic Data Vital Signs and I&O Vital Signs Date Time Temp Pulse Resp B/P B/P Pulse O2 O2 Flow FiO2 Mean Ox Delivery Rate 06/07 08 134/70 06/07 0829 134/70 06/07 0704 97.6 68 20 138/68 97 06/07 0059 97.8 73 20 148/72 94 Room Air 06/06 2258 98.6 65 20 115/73 97 Room Air 06/06 2051 98.0 88 16 123/67 96 06/06 1847 96.5 75 18 122/78 96 Room Air Intake & Output 06/07 1600 06/07 0806/07 0000 06/06 1600 06/06 0800 06/06 0000 Intake Total 400 1000 Output Total 100 Balance 400 900 Intake, IV 200 1000 Intake, Oral 200 Output, Urine 100 Patient 63.049 kg 58.967 kg Weight Weight Bed scale Measurement Method Physical Exam General Appearance: well developed/nourished, no apparent distress, alert, awake , comfortable Head: atraumatic, normal appearance Eyes: Bilateral: normal appearance. Ears, Nose, Throat: normal ENT inspection Neck: normal inspection Respiratory: normal breath sounds Gastrointestinal: soft, non-tender Rectal: deferred Back: normal inspection Extremities: normal inspection Neurologic/Psych: awake, alert Cranial Nerves: normal hearing, normal speech Skin: intact, normal color, warm/dry Reproductive: Normal male genitalia Last 24 Hours of Labs: Laboratory Tests 06/07 06/07 06/06 0635 0115 2311 Chemistry Sodium (137 - 145 mmol/L) 141 Potassium (3.5 - 5.1 mmol/L) 5.3 H Chloride (98 - 107 mmol/L) 109 H Carbon Dioxide (22 - 30 mmol/L) 17 L Anion Gap (5 - 16) 15 BUN (9 - 20 mg/dL) 67 H Creatinine (0.7 - 1.2 mg/dL) 2.0 H Estimated GFR (>60 ml/min) 32 L BUN/Creatinine Ratio (7 - 25 %) 33.5 H Lactic Acid (0.7 - 2.1 mmol/L) 1.9 2.2 H Magnesium (1.6 - 2.3 mg/dL) 2.0 Troponin I (<0.11 ng/ml) 0.10 0.13 *H Hematology CBC w Diff MAN DIFF ORDERED WBC (4.8 - 10.8 /CUMM) 7.8 RBC (4.70 - 6.10 /CUMM) 3.24 L Hgb (14.0 - 18.0 G/DL) 10.1 L Hct (42 - 52 %) 30.3 L MCV (80.0 - 94.0 FL) 93.3 MCH (27.0 - 31.0 PG) 31.2 H MCHC (33.0 - 37.0 G/DL) 33.4 RDW (11.5 - 14.5 %) 16.8 H Plt Count (130 - 400 /CUMM) 243 MPV (7.4 - 10.4 FL) 7.5 Gran % (42.2 - 75.2 %) 87.6 H Lymphocytes % (20.5 - 51.1 %) 3.8 L Monocytes % (1.7 - 9.3 %) 8.4 Eosinophils % (0 - 5 %) 0.2 Basophils % (0.0 - 2.0 %) 0 Absolute Granulocytes (1.4 - 6.5 /CUMM) 6.8 H Segmented Neutrophils (42.2 - 75.2 %) 82 H Absolute Lymphocytes (1.2 - 3.4 /CUMM) 0.3 L Lymphocytes (20.5 - 51.1 %) 13 L Monocytes (1.7 - 9.3 %) 5 Absolute Monocytes (0.10 - 0.60 /CUMM) 0.6 Absolute Eosinophils (0.0 - 0.7 /CUMM) 0 Absolute Basophils (0.0 - 0.2 /CUMM) 0 Nucleated RBCs (0.0 - 0.0 /100WBC) 2 H Platelet Estimate (ADEQUATE) ADEQUATE Hypochromic-Microcytic 1+ Poikilocytosis 1+ Anisocytosis 1+ 06/06 Coagulation PT (9.4 - 12.5 SEC) 28.9 H INR (0.90 - 1.17) 2.63 H APTT (25 - 37 SEC) 35 Urines Urine Color (YEL,AMB,STR) YEL Urine Clarity (CLEAR) CLDY H Urine pH (5.0 - 8.0) 6.0 Ur Specific [place] (1.001 - 1.035) 1.020 Urine Protein (NEG,<30 MG/DL) 30 H Urine Ketones (NEG) NEG Urine Nitrite (NEG) POS H Urine Bilirubin (NEG) NEG Urine Urobilinogen (0.1 - 1.0 EU/dl) 0.2 Ur Leukocyte Esterase (NEG) LARGE H Ur Microscopic SEDIMENT EXAMINED Urine RBC (0 - 5 /HPF) 1-3 Urine WBC (0 - 2 /HPF) > 75 H Urine Bacteria (NEG/NONE) FEW H Urine Hemoglobin (NEG) MOD H Urine Glucose (N MG/DL) NEG 06/06 2034 Chemistry Sodium (137 - 145 mmol/L) 140 Potassium (3.5 - 5.1 mmol/L) 5.4 H Chloride (98 - 107 mmol/L) 105 Carbon Dioxide (22 - 30 mmol/L) 19 L Anion Gap (5 - 16) 16 BUN (9 - 20 mg/dL) 69 H Creatinine (0.7 - 1.2 mg/dL) 2.0 H Estimated GFR (>60 ml/min) 32 L BUN/Creatinine Ratio (7 - 25 %) 34.5 H Glucose (65 - 99 mg/dL) 88 Lactic Acid (0.7 - 2.1 mmol/L) 3.1 H Calcium (8.4 - 10.2 mg/dL) 9.6 Total Bilirubin (0.2 - 1.3 mg/dL) 0.7 AST (17 - 59 U/L) 24 ALT (21 - 72 U/L) 36 Alkaline Phosphatase (< 127 U/L) 63 Troponin I (<0.11 ng/ml) 0.12 *H [id number] Pept (<125 pg/mL) 40431 H Total Protein (6.3 - 8.2 g/dL) 7.6 Albumin (3.5 - 5.0 g/dL) 4.4 Globulin (1.9 - 4.2 gm/dL) 3.2 Albumin/Globulin Ratio (1.1 - 2.2 %) 1.4 Lipase (23 - 300 U/L) 59 Hematology CBC w Diff NO MAN DIFF REQ WBC (4.8 - 10.8 /CUMM) 6.7 RBC (4.70 - 6.10 /CUMM) 3.46 L Hgb (14.0 - 18.0 G/DL) 10.8 L Hct (42 - 52 %) 31.9 L MCV (80.0 - 94.0 FL) 92.1 MCH (27.0 - 31.0 PG) 31.1 H MCHC (33.0 - 37.0 G/DL) 33.8 RDW (11.5 - 14.5 %) 17.1 H Plt Count (130 - 400 /CUMM) 272 MPV (7.4 - 10.4 FL) 7.3 L Gran % (42.2 - 75.2 %) 79.2 H Lymphocytes % (20.5 - 51.1 %) 6.6 L Monocytes % (1.7 - 9.3 %) 12.7 H Eosinophils % (0 - 5 %) 1.4 Basophils % (0.0 - 2.0 %) 0.1 Absolute Granulocytes (1.4 - 6.5 /CUMM) 5.3 Absolute Lymphocytes (1.2 - 3.4 /CUMM) 0.4 L Absolute Monocytes (0.10 - 0.60 /CUMM) 0.8 H Absolute Eosinophils (0.0 - 0.7 /CUMM) 0.1 Absolute Basophils (0.0 - 0.2 /CUMM) 0 Imaging Results: CT abd/pelvis Nonspecific stranding about the urinary bladder wall. There is mild urinary bladder wall thickening in the setting of a partially filled urinary bladder. This is nonspecific, though consider correlation with urinalysis to evaluate for signs of cystitis. Assessment/Plan Assessment/Plan 83yo male with a hx of multiple med problems and specific hx of CAP s/p rad seeds with recent onset of urinary issues eg dysuria, urgency and frequency with bladder pain. Hehas been in the care of Dr. Ngo and started on flomax a few months ago with no improvement and then oxybutynin. The oxybutynin has not had a favorable effect on his issues and has worsened them. Discontinued this med and his urinalysis appears to be suspicious of an UTI with culture showing gram neg rods. Would hold off on a hyatt catheter for now since PVR is 145cc. And if worsens, nursing can place it. He should Fu with Dr. Ngo this week as an outpatient. Consult Acknowledgment - Thank you for your consult request.
[2018-06-07 15:12] VITALS: BP 120/68
--- NOTE | 2018-06-07 15:40 | Cons- Cardiology ---
General Information and HPI Consulting Request Date of Consult: 06/07/18 Requested By: Nixon Cerda MD History of Present Illness: Mr. Mckinnon is an 83 year old male with history of hypertension, hyperlipidemia, diabetes, atrial fibrillation and coronary artery disease s/p CABG. He also has a pacemaker. Finally, this patient carries a history of melanoma and prostate cancer. Over the past couple months this patient has noted a decrease in his ability to urinate. He also has watery diarrhea. benedict, prostate cancer who presents for decreased urinary output and pain for 2 months and new onset watery diarrhea for the past 2 days. He was found to have an acute rise in his serum creatinine and his urinalysis was consistent with urosepsis. Two borderline elevated troponins are also noted. The patient is a somewhat compromised historian due to a poor memory but he denies chest pain, pressure or tightness. He walks slowly at his baseline with higher levels of activity causing shortness of breath. He is without orthopnea. On rare occasions he will noted lightheadedness and palpitations. Allergies/Medications Allergies: Coded Allergies: NO KNOWN ALLERGIES (12/03/11) Home Med List: Calcium (Elemental-Fr Calcarb) (Calcium) (Unknown Strength) TABLET (Unknown Dose) PO DAILY SUPPLEMENT (Reported) Furosemide 20 MG TABLET 1 TAB PO DAILY DIURETIC (Reported) Glipizide 5 MG TABLET 1 TAB PO BID DM (Reported) Lisinopril 5 MG TABLET 1 TAB PO DAILY HTN (Reported) Loperamide HCl (Loperamide) 2 MG CAPSULE 1 CAP PO DAILY STOOLS (Reported) Metformin HCl 1,000 MG TABLET 1 TAB PO BID DM (Reported) Metoprolol Succinate 50 MG TAB.ER.24H 1 TAB PO DAILY HEART/BP (Reported) Multiple Vitamin (Multivitamins) 1 EACH TABLET 1 TAB PO DAILY SUPPLEMENT ( Reported) Potassium Chloride (Unknown Strength) TABLET.ER 10 MEQ PO DAILY SUPPLEMENT ( Reported) Warfarin Sodium 5 MG TABLET 1 TAB PO DAILY BLOOD THINNER (Reported) Review of Systems Review of Systems: cough Past History Travel History Traveled to [place] past 21 day No Medical History Blood Transfusion Hx: No Neurological: TIA Cardiovascular: aortic aneurysm, AFIB, CAD, hypertension, hyperlipidemia, myocardial infarction Renal: chronic kidney disease Endocrine: diabetes Cancer(s): melanoma, prostate cancer Surgical History Surgical History: CABG, AAA repair rad seeds for CAP Family History Relations & Conditions If Any: FATHER FH: kidney failure BROTHER FH: myocardial infarction Psychosocial History Where Do You Live? Home Who Do You Live With? spouse Services at Home: None Primary Language: Cuban Smoking Status: Never Smoked ETOH Use: denies use Illicit Drug Use: denies illicit drug use Functional Ability ADLs Independent: dressing, eating, toileting, bathing. Ambulation: cane IADLs Independent: shopping, housework, finances, food prep, telephone. Needs Assist: transportation, medication admin. 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 Exam & Diagnostic Data Vital Signs and I&O Vital Signs Date Time Temp Pulse Resp B/P B/P Pulse O2 O2 Flow FiO2 Mean Ox Delivery Rate 06/07 1512 97.5 70 20 120/68 95 Room Air 06/07 0829 134/70 06/07 0829 134/70 06/07 0704 97.6 68 20 138/68 97 06/07 0059 97.8 73 20 148/72 94 Room Air 06/06 2258 98.6 65 20 115/73 97 Room Air 06/06 2051 98.0 88 16 123/67 96 06/06 1847 96.5 75 18 122/78 96 Room Air Intake & Output 06/07 1600 06/07 0800 06/07 0000 06/06 1600 06/06 0800 06/06 0000 Intake Total 004 251 8448 Output Total 150 100 Balance 550 400 900 Intake, IV 987 078 0084 Intake, Oral 400 200 Output, Urine 150 100 Patient 139 lb 130 lb Weight Weight Bed scale Measurement Method Physical Exam: General: WD/WN male in NAD; alert and oriented x 3 HEENT: NC/AT, PERRL, EOMI Neck: positive JVD, no carotid bruit Heart: iregularly irregular w/o murmur Lungs: clear bilaterally ABdomen: soft, NT, +ve bowel sounds Extremities: no edema Assessment/Plan Assessment/Plan * This patient has borderline troponins in the setting of renal insufficency without chest pain or electrocardiographic changes suggestive of ischemia. I do not think he is having any ACS. Although he does have JVD, he is not short of breath or hypoxic and his INR is in the upper therapeutic range so I have a low suspicion for a PE causing the rise in cardiac enzymes. His lungs are clear without evidence of decompensated left heart failure. * Obtain and echocardiogram to assess RV pressures. * In the setting of his acute renal insufficiency I would not be overly aggressive in using diuretics or ACEI. Hold his Lisinopril until his creatinine normalized to baseline. No need for diuretics in the setting of clear lungs and no shortness of breath. Consult Acknowledgment - Thank you for your consult request.
[2018-06-07 17:38] LABS: PT 45.7 SEC (9.4-12.5)
[2018-06-07 22:17] VITALS: BP 114/66
--- NOTE | 2018-06-08 06:51 | PN- Housestaff ---
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 fib Subjective: No events overnight. Patient seen lying in his bed comfortably in no acute distress. He reports trying to drink fluids but admits to poor urine output. Review of Systems Constitutional: Reports: see HPI. Objective Last 24 Hrs of Vital Signs/I&O Vital Signs Date Time Temp Pulse Resp B/P B/P Pulse O2 O2 Flow FiO2 Mean Ox Delivery Rate 06/08 2212 98.2 76 17 134/88 95 06/08 1440 97.5 64 24 146/76 97 06/08 0843 138/68 06/08 0733 98.1 66 18 130/78 93 Room Air Intake & Output 06/09 0800 06/09 0000 06/08 1600 Intake Total 400 Output Total Balance 400 Intake, Oral 400 Number 1 Bowel Movements Patient 140 lb Weight Physical Exam General Appearance: Alert, Cooperative, No Acute Distress Skin Temp/Moisture Exam: Warm/Dry Sepsis Skin Exam (color): Normal for Ethnicity HEENT: Atraumatic, EOMI Cardiovascular: Normal S1, Normal S2 Lungs: Clear to Auscultation, Normal Air Movement Abdomen: Normal Bowel Sounds, Soft, No Tenderness Assessment/Plan Assessment: 83 year old male with PMH significant for atrial fibrillation on coumadin s/p PPM 2013, HTN, HLD, DM, CAD s/p CABG ~1999, CKD Stage III, TIA, AAA repair, and prostate cancer s/p radiation ~5-6 years ago presents with complaints of worsening dysuria and urinary frequency and one day history of diarrhea. It seems that patient is oligouric considering PVR yahaira 145 cc. 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 Likely etiology for his trops as well. We will get neprho to guide our care. Urinary tract infection: History of prostate cancer s/p radiation Worsening urinary symptoms Urinalysis >75WBCs, positive nitrite and leukocyte esterase No fever or CVA tenderess CT abdomen negative for hydronephrosis, perinephric stranding or nephrolithiasis Ceftriaxone 1g IV daily (Continue until 10 days duration, with oral conversion outpatient) Follow up urine culture and blood cultures Urology consultation with Dr. Huber beth in one week Supratherapeutic INR Most likely seondary to antibiotic use Hold Coumadin Elevated troponins: History of CAD s/p CABG Mildly elevated to 0.13 in the setting of infection and elevated creatinine proBNP significantly elevated to 34,000, but no evidence of heart failure, lasix held No acute ischemic EKG changes, give ASA 325mg in the ED No complaints of chest pain or cardiovascular symptoms, possible type II NSTEMI Continue metoprolol XL Continue aspirin 81mg and atorvastatin Echocardiogram pending Acute kidney injury on chronic kidney disease stage III: Creatinine elevated to 2.0, likely prerenal with diarrhea CT Abdomen Pelvis shows no hydronephrosis Bladder ultrasound < 200cc of retained urine post void Baseline is ~1.5 Avoid nephrotoxins NS stopped due to pt clinically presenting volume overloaded Nephro consult pending (elevated K, Structural Steel Equipment Erector, and Oligouric) Diarrhea: Check C diff Hyperkalemia: Mildly elevated to 5.4 -> 5.5, Hold potassium supplementation (normally takes with furosemide at home) Repeat electrolytes in the morning Atrial fibrillation: s/p PM 2013 Coumadin per INR Continue metoprolol for rate control HTN: Hold ACEi and Lasix per Cardiology Continue and metoprolol HLD: Start statin therapy DM: Accuchecks TIDAC/HS Hold metformin and glipizide Start sliding scale insulin Full Code DVT ppx Problem List: 1. QUINTIN (acute kidney injury) 2. UTI (urinary tract infection) 3. Subtherapeutic anticoagulation Pain Ratin Pain Location: n/a Pain Goal: Remain pain free Pain Plan: pathway Tomorrow's Labs & Rationales: ANAM Keller MD,Bibiana 06/08/18 1327: Attending MD Review Statement Attending Statement Attending MD Statement: examined this patient, discuss w/resident/PA/MEDICAL RECEPTIONIST BILLER, agreed w/resident/PA/MEDICAL RECEPTIONIST BILLER, reviewed EMR data (avail), discussed with nursing, discussed with case mgmt, amended to note Attending Assessment/Plan: Patient seen and examined. present at the bedside. Lying in bed and not in acute distress. Denies chest pain or shortness of breath at rest. Denies palpitations. Complains of dysuria. He has minimal amount of urinary retention on bladder scan. Patient documented urine output is low however nursing staff reports that he is incontinent of urine frequently voiding and his diapers. She reports that the diaper does contain a decent amount of urine. He is afebrile. He is hemodynamically stable. On examination abdomen is soft and nontender with no suprapubic tenderness. He has no peripheral edema. On telemetry monitoring he did have evidence of wide complex tachycardia briefly. Recommendations: Continue IV antibiotic therapy. Follow-up sensitivity and transition to oral antibiotics. Complete 10 days of treatment for his symptomatic urinary tract infection. Recommend consultation with the nephrology service on account of his worsening renal function and elevated potassium levels. Troponin elevation likely due to demand ischemia. Review of his coronary artery disease patient should follow-up with cardiology service as an outpatient for further ischemic workup as indicated.
[2018-06-08 07:33] VITALS: BP 130/78
[2018-06-08 08:32] LABS: PT 57.2 SEC (9.4-12.5)
[2018-06-08 08:36] LABS: ABSOLUTE BASOPHIL COUNT 0 /CUMM (0.0-0.2); ABSOLUTE EOSINOPHIL COUNT 0 /CUMM (0.0-0.7); ABSOLUTE GRANULOCYTE CT 6.6 /CUMM (1.4-6.5); ABSOLUTE LYMPH COUNT 0.4 /CUMM (1.2-3.4); ABSOLUTE MONOCYTE COUNT 0.8 /CUMM (0.10-0.60); BASOPHIL % 0 % (0.0-2.0); EOSINOPHIL % 0.6 % (0-5); GRANULOCYTE % 84.2 % (42.2-75.2); MEAN CORPUSCULAR HGB 31.2 PG (27.0-31.0); MEAN CORPUSCULAR HGB CONC 33.5 G/DL (33.0-37.0); MEAN CORPUSCULAR VOLUME 93.3 FL (80.0-94.0); MEAN PLATELET VOLUME 7.5 FL (7.4-10.4); PLATELET COUNT 239 /CUMM (130-400); RED BLOOD CELL CT 3.32 /CUMM (4.70-6.10); WHITE BLOOD CELL COUNT 7.9 /CUMM (4.8-10.8)
--- NOTE | 2018-06-08 12:47 | PN- Cardiology ---
Subjective Subjective: Patient complains of dysuria. Denies any chest pain, dyspnea, or palpitations. Objective Vital Signs and I&Os Vital Signs Date Time Temp Pulse Resp B/P B/P Pulse O2 O2 Flow FiO2 Mean Ox Delivery Rate 06/08 0843 138/68 06/08 0733 98.1 66 18 130/78 93 Room Air 06/08 0000 Room Air 06/07 2217 97.8 60 19 114/66 95 06/07 1512 97.5 70 20 120/68 95 Room Air Intake & Output 06/08 1600 06/08 0800 06/08 0000 06/07 1600 06/07 0806/07 0000 Intake Total 120 120 504 171 1893 Output Total 150 100 Balance 120 120 550 400 900 Intake, IV 914 454 3780 Intake, Oral 120 120 400 200 Output, Urine 150 100 Patient 146 lb 139 lb 130 lb Weight Weight Bed scale Measurement Method Physical Exam: General: no apparent distress. Alert. Eyes: No obvious scleral icterus. HEENT: No jugular venous distention or abnormal jugular venous pulsations. Cardiovascular: Normal intensity S1/S2. Irregular , permanent pacemaker noted Respiratory: Lungs clear to auscultation bilaterally. Abdomen: Soft, nontender with no guarding or rebound tenderness. Musculoskeletal: No clubbing or cyanosis noted: No edema Skin: warm Current Medications: Current Medications Sig/Vic Start time Last Medication Dose Route Stop Time Status Admin Acetaminophen 650 MG Q6P PRN 06/07 0015 AC PO Aspirin Buffered 81 MG DAILY 06/07 09 AC 06/07 PO 0834 Atorvastatin Calcium 40 MG 1700 06/07 1700 AC 06/07 PO 1521 Ceftriaxone Sodium 1,000 MG 2100 06/07 2100 AC 06/07 IV 2039 Insulin Aspart 0 TIDAC 06/07 08 AC 06/08 SC 1218 Lisinopril 5 MG DAILY 06/07 09 DC 06/07 PO 0829 Metoprolol Succinate 50 MG DAILY 06/07 09 AC 06/08 PO 0843 Sodium Chloride 1,000 ML Q10H 06/07 0400 DC 06/07 IV 06/07 1359 0440 Results Last 48 Hrs of Labs/Mics: Laboratory Tests 06/08/18 0620: Anion Gap 13, Estimated GFR 32 L, BUN/Creatinine Ratio 32.0 H, PT 57.2 *H, INR 5.16 *H, CBC w Diff MAN DIFF ORDERED, RBC 3.32 L, MCV 93.3, MCH 31.2 H, MCHC 33.5, RDW 17.0 H, MPV 7.5, Gran % 84.2 H, Lymphocytes % 5.5 L, Monocytes % 9.7 H, Eosinophils % 0.6, Basophils % 0, Absolute Granulocytes 6.6 H, Segmented Neutrophils 85 H, Absolute Lymphocytes 0.4 L, Lymphocytes 5 L, Monocytes 10 H, Absolute Monocytes 0.8 H, Absolute Eosinophils 0, Absolute Basophils 0, Nucleated RBCs 2 H, Platelet Estimate VERIFIED BY SMEAR, Polychromasia 1+, Poikilocytosis 1+, Anisocytosis 1+, Ovalocytes 1+, [place] Cells 1+ 06/07/18 1545: PT 45.7 *H, INR 4.13 *H 06/07/18 0635: Anion Gap 15, Estimated GFR 32 L, BUN/Creatinine Ratio 33.5 H, Lactic Acid 1.9 , Magnesium 2.0, Troponin I 0.10, CBC w Diff MAN DIFF ORDERED, RBC 3.24 L, MCV 93.3, MCH 31.2 H, MCHC 33.4, RDW 16.8 H, MPV 7.5, Gran % 87.6 H, Lymphocytes % 3.8 L, Monocytes % 8.4, Eosinophils % 0.2, Basophils % 0, Absolute Granulocytes 6.8 H, Segmented Neutrophils 82 H, Absolute Lymphocytes 0.3 L, Lymphocytes 13 L, Monocytes 5, Absolute Monocytes 0.6, Absolute Eosinophils 0, Absolute Basophils 0, Nucleated RBCs 2 H, Platelet Estimate ADEQUATE, Hypochromic-Microcytic 1+, Poikilocytosis 1+, Anisocytosis 1+ 06/07/18 0553: Ur Random Creatinine Cancelled, Ur Random Sodium Cancelled, Ur Random Potassium Cancelled, Fraction Sodium Excret Cancelled 06/07/18 0115: Troponin I 0.13 *H 06/06/18 2311: Lactic Acid 2.2 H 06/06/18 2044: PT 28.9 H, INR 2.63 H, APTT 35 06/06/182040: Urine Color YEL, Urine Clarity CLDY H, Urine pH 6.0, Ur Specific [place] 1.020, Urine Protein 30 H, Urine Ketones NEG, Urine Nitrite POS H, Urine Bilirubin NEG, Urine Urobilinogen 0.2, Ur Leukocyte Esterase LARGE H, Ur Microscopic SEDIMENT EXAMINED, Urine RBC 1-3, Urine WBC > 75 H, Urine Bacteria FEW H, Urine Hemoglobin MOD H, Urine Glucose NEG 06/06/182033: Anion Gap 16, Estimated GFR 32 L, BUN/Creatinine Ratio 34.5 H, Glucose 88, Lactic Acid 3.1 H, Calcium 9.6, Total Bilirubin 0.7, AST 24, ALT 36, Alkaline Phosphatase 63, Troponin I 0.12 *H, Tcd-I-Nceolurhnji Pept 10372 H, Total Protein 7.6, Albumin 4.4, Globulin 3.2, Albumin/Globulin Ratio 1.4, Lipase 59, CBC w Diff NO MAN DIFF REQ, RBC 3.46 L, MCV 92.1, MCH 31.1 H, MCHC 33.8, RDW 17.1 H, MPV 7.3 L, Gran % 79.2 H, Lymphocytes % 6.6 L, Monocytes % 12.7 H, Eosinophils % 1.4, Basophils % 0.1, Absolute Granulocytes 5.3, Absolute Lymphocytes 0.4 L, Absolute Monocytes 0.8 H, Absolute Eosinophils 0.1, Absolute Basophils 0 Microbiology 06/06 2041 URINE ROUT: Urine Culture - COMP KLEBSIELLA PNEUMONIAE Recent Imaging Studies: Telemetry tracings were personally reviewed and show atrial fibrillation with some periods of wide-complex (nonsustained) rhythm Assessment/Plan Assessment/Plan 1. Symptomatic UTI 2. acute on chronic renal insufficiency 3. minimal troponin elevation likely due to renal insufficiency 4. chronic atrial fibrillation on chronic anticoagulation with Coumadin 5. permanent pacemaker in situ 6. history of coronary artery disease with remote CABG 7. History of aortic aneurysm with prior endovascular repair 8. Diabetes 9. history of asymptomatic NSVT Patient remains hemodynamically stable with no evidence of acute coronary syndrome. Remains in atrial fibrillation with grossly controlled ventricular response rate. Continue on the current daily beta-michael. Hold Coumadin in the setting of supratherapeutic INR. Echocardiogram is pending. Oumar Kirby MD [facility] Continue telemetry? Yes
[2018-06-08 14:40] VITALS: BP 146/76
[2018-06-08 22:12] VITALS: BP 134/88
[2018-06-09 07:57] LABS: ABSOLUTE BASOPHIL COUNT 0 /CUMM (0.0-0.2); ABSOLUTE EOSINOPHIL COUNT 0 /CUMM (0.0-0.7); ABSOLUTE GRANULOCYTE CT 8.8 /CUMM (1.4-6.5); ABSOLUTE LYMPH COUNT 0.4 /CUMM (1.2-3.4); ABSOLUTE MONOCYTE COUNT 0.9 /CUMM (0.10-0.60); BASOPHIL % 0 % (0.0-2.0); EOSINOPHIL % 0.1 % (0-5); GRANULOCYTE % 87.2 % (42.2-75.2); HEMATOCRIT 31.8 % (42-52); MEAN CORPUSCULAR HGB 31.5 PG (27.0-31.0); MEAN CORPUSCULAR HGB CONC 33.5 G/DL (33.0-37.0); MEAN CORPUSCULAR VOLUME 93.9 FL (80.0-94.0); MEAN PLATELET VOLUME 7.6 FL (7.4-10.4); PLATELET COUNT 228 /CUMM (130-400); RBC DISTRIBUTION WIDTH 17.1 % (11.5-14.5); RED BLOOD CELL CT 3.39 /CUMM (4.70-6.10); WHITE BLOOD CELL COUNT 10.1 /CUMM (4.8-10.8)
[2018-06-09 08:03] VITALS: BP 138/72
[2018-06-09 08:35] LABS: PT 67.2 SEC (9.4-12.5)
--- NOTE | 2018-06-09 10:15 | PN- Housestaff ---
Harry Pitts 06/09/18 1015: Subjective Follow-up For: QUINTIN on CKD UTI Urine retention Afib Subjective: Per family and nursing patient is reported to be slightly confused but on our assessment in the morning patient was oriented x 3. He reports a decrease in his urinary symptoms and that he is urinating on his own. He denies any new symptoms. Later in they day when rounding on him he was found to have much more confusion than the morning assessment and only oriented x 1. Review of Systems Constitutional: Reports: see HPI. Objective Last 24 Hrs of Vital Signs/I&O Vital Signs Date Time Temp Pulse Resp B/P B/P Pulse O2 O2 Flow FiO2 Mean Ox Delivery Rate 06/09 1421 97.4 60 18 124/62 95 Room Air 06/09 0803 98.4 60 18 138/72 94 06/09 0802 72 112/64 06/08 2212 98.2 76 17 134/88 95 Intake & Output 06/09 1600 06/09 0800 06/09 0000 Intake Total 900 Output Total Balance 900 Intake, Oral 900 Number 1 Bowel Movements Patient 140 lb Weight Physical Exam General Appearance: Alert, Cooperative, No Acute Distress Skin Temp/Moisture Exam: Warm/Dry HEENT: Atraumatic, EOMI Cardiovascular: Normal S1, Normal S2 Lungs: Clear to Auscultation, Normal Air Movement Abdomen: Normal Bowel Sounds, Soft, No Tenderness Current Medications: Current Medications Sig/Vic Start time Last Medication Dose Route Stop Time Status Admin Acetaminophen 650 MG Q6P PRN 06/07 0015 AC PO Amoxicillin/ 500 MG Q12H 06/09 1100 AC 06/09 Clavulanate Potassium PO 2218 Aspirin Buffered 81 MG DAILY 06/07 0900 AC 06/09 PO 0802 Atorvastatin Calcium 40 MG 1700 06/07 1700 AC 06/09 PO 1820 Ceftriaxone Sodium 1,000 MG 2100 06/07 2100 DC 06/08 IV 2059 Insulin Aspart 0 TIDAC 06/07 08 AC 06/09 SC 1820 Metoprolol Succinate 50 MG DAILY 06/07 0900 AC 06/09 PO 0802 Last 24 Hrs of Lab/Torres Results Last 24 Hrs of Labs/Mics: Laboratory Tests 06/09/18 1623: Prot Electrophoresis Cancelled, Total Protein (PEP) Cancelled, Albumin % (PEP) Cancelled, Nlarl-0-Kwjbklqtv Cancelled, Yqmce-7-[place]owes[place]wa Cancelled, Beta-1- Globulin Cancelled, Axha-3-Mlrwvmzn Cancelled, Gamma Globulins Cancelled, Abnorm Protein Band 1 Cancelled, Abnorm Protein Band 2 Cancelled, Abnorm Protein Band 3 Cancelled 06/09/18 1620: Hepatitis A IgM Ab Cancelled, Hep Bs Antigen Cancelled, Hep B Core IgM Ab Conf Cancelled, Hepatitis C Antibody Cancelled 06/09/18 0645: Anion Gap 11, Estimated GFR 32 L, BUN/Creatinine Ratio 32.0 H, PT 67.2 *H, INR 6.05 *H, CBC w Diff MAN DIFF ORDERED, RBC 3.39 L, MCV 93.9, MCH 31.5 H, MCHC 33.5, RDW 17.1 H, MPV 7.6, Gran % 87.2 H, Lymphocytes % 3.7 L, Monocytes % 9.0, Eosinophils % 0.1, Basophils % 0, Absolute Granulocytes 8.8 H, Segmented Neutrophils 89 H, Absolute Lymphocytes 0.4 L, Lymphocytes 3 L, Monocytes 7, Absolute Monocytes 0.9 H, Absolute Eosinophils 0, Absolute Basophils 0, Metamyelocytes 1, Nucleated RBCs 2 H, Platelet Estimate ADEQUATE, Polychromasia 1+, Poikilocytosis 1+, Anisocytosis 1+, Elliptocytes FEW Assessment/Plan Assessment: Assessment: 83 year old male with PMH significant for atrial fibrillation on coumadin s/p PPM 2013, HTN, HLD, DM, CAD s/p CABG ~1999, CKD Stage III, TIA, AAA repair, and prostate cancer s/p radiation ~5-6 years ago presents with complaints of worsening dysuria and urinary frequency and one day history of diarrhea. It seems that patient is oligouric considering PVR yahaira 145 cc. We will hold nephrotoxic medications as his K, Hide Cooking Operator are elevated. Likely etiology for his trops as well. We will get neprho to guide our care. Also noted, patient appears to have increasing confusion. He was oriented during the day during examination but later in the afternoon, it was noticed by staff that his orientation to time and place was off. He had somewhat incoherent answers to questions as well. Likely secondary to UTI. Urinary tract infection: History of prostate cancer s/p radiation Worsening urinary symptoms Urinalysis >75WBCs, positive nitrite and leukocyte esterase No fever or CVA tenderess CT abdomen negative for hydronephrosis, perinephric stranding or nephrolithiasis Amoxicillin/Clauvinic Acid Urine culture positive for Klebsiella Pneumoniae Dr Vital called to come see patient White count increasing gradually (still wnl) Supratherapeutic INR Most likely seondary to antibiotic use Hold Coumadin Elevated troponins: History of CAD s/p CABG Mildly elevated to 0.13 in the setting of infection and elevated creatinine proBNP significantly elevated to 34,000, but no evidence of heart failure, lasix held No acute ischemic EKG changes, give ASA 325mg in the ED No complaints of chest pain or cardiovascular symptoms, possible type II NSTEMI Continue metoprolol XL Continue aspirin 81mg and atorvastatin Echocardiogram pending Acute kidney injury on chronic kidney disease stage III: Creatinine elevated to 2.0, likely prerenal with diarrhea Baseline is ~1.5 CT Abdomen Pelvis shows no hydronephrosis Bladder ultrasound < 200cc of retained urine post void Avoid nephrotoxins NS fluids stopped due to pt clinically presenting volume overloaded Nephro recs appreciated Continue to hold RAAS inhibtion, and Lasix Hepatitis serologies, SPEP Diarrhea: Check C diff Hyperkalemia: Mildly elevated to 5.4 -> 5.5 Hold potassium supplementation (normally takes with furosemide at home) Repeat electrolytes in the morning Atrial fibrillation: s/p PM 2013 Coumadin per INR Continue metoprolol for rate control Echo pending HTN: Hold ACEi and Lasix per Cardiology Continue metoprolol HLD: Atorvastatin 40mg started DM: Accuchecks TIDAC/HS Hold metformin and glipizide Start sliding scale insulin Problem List: 1. QUINTIN (acute kidney injury) 2. UTI (urinary tract infection) Pain Ratin Pain Location: n/a Pain Goal: Remain pain free Pain Plan: pathway Tomorrow's Labs & Rationales: BEP INR SPEP Hep Panel Krishna ROSEN,Bibiana 06/09/18 1107: Attending MD Review Statement Attending Statement Attending MD Statement: examined this patient, discuss w/resident/PA/SCHO[employer] OF NURSING DIRECTOR, agreed w/resident/PA/[employer] OF NURSING DIRECTOR, reviewed EMR data (avail), discussed with nursing, discussed with case mgmt, amended to note Attending Assessment/Plan: Patient seen and examined. Resting comfortably not in any acute distress. Nursing staff reports some periods of confusion. This was discussed with the who reports that this is patient's baseline. She admits that he gets confused from time to time. On my evaluation this morning he was alert and oriented x3 and conversant appropriately. He reports that his dysuria is improving. Denies any abdominal discomfort. Denies cough or shortness of breath. Denies chest pain. Urine culture results noted. Will transfer patient to Augmentin and complete 10 days of antibiotic therapy. INR remains supratherapeutic likely interaction with the antibiotic therapy and Coumadin. Recommend holding Coumadin and resuming once INR is below 2.9. Patient is currently very deconditioned. Nursing staff has been encouraged to mobilize the patient. Physical therapy consultation has been placed. Hopefully he can be discharged home once he is conditioning improves. If not he may require transfer to a long term facility for short-term rehabilitation.
--- NOTE | 2018-06-09 10:38 | Cons- Nephrology ---
General Information and HPI Consulting Request Date of Consult: 06/09/18 Requested By: Krishna ROSEN,Bibiana Reason for Consult: QUINTIN onCKD History of Present Illness: 83 yo male with CAD s/p CABG, DM, CKD with baseline creatinine in mid 1s, atrial fibrillation, aortic aneurysm s/p stent graft, s/p packmaker. He has histoyr of melanoma and prostate cancer treated with seed implant. He has had difficulty with urination, dysuria, frequency. Recently he developed diarrhea and a rise in his creatinine to 2.0. Because of this rise he was sent to the ED. He was found to have Klebsiella UTI. Creatinine has remainded at 2.0 and I was asked to see the patient. Of note, abdominal CT scan did not show any obstruction. FH: Father with kidney failure SH: negative smoking or ethanol consumption. Allergies/Medications Allergies: Coded Allergies: NO KNOWN ALLERGIES (12/03/11) Home Med List: Calcium (Elemental-Fr Calcarb) (Calcium) (Unknown Strength) TABLET (Unknown Dose) PO DAILY SUPPLEMENT (Reported) Furosemide 20 MG TABLET 1 TAB PO DAILY DIURETIC (Reported) Glipizide 5 MG TABLET 1 TAB PO BID DM (Reported) Lisinopril 5 MG TABLET 1 TAB PO DAILY HTN (Reported) Loperamide HCl (Loperamide) 2 MG CAPSULE 1 CAP PO DAILY STOOLS (Reported) Metformin HCl 1,000 MG TABLET 1 TAB PO BID DM (Reported) Metoprolol Succinate 50 MG TAB.ER.24H 1 TAB PO DAILY HEART/BP (Reported) Multiple Vitamin (Multivitamins) 1 EACH TABLET 1 TAB PO DAILY SUPPLEMENT ( Reported) Potassium Chloride (Unknown Strength) TABLET.ER 10 MEQ PO DAILY SUPPLEMENT ( Reported) Warfarin Sodium 5 MG TABLET 1 TAB PO DAILY BLOOD THINNER (Reported) Current Medications: Current Medications Sig/Vic Start time Last Medication Dose Route Stop Time Status Admin Acetaminophen 650 MG Q6P PRN 06/07 0015 AC PO Amoxicillin/ 875 MG Q12 06/09 0900 UNVr Clavulanate Potassium PO Aspirin Buffered 81 MG DAILY 06/07 0900 AC 06/09 PO 0802 Atorvastatin Calcium 40 MG 1700 06/07 1700 AC 06/08 PO 1637 Ceftriaxone Sodium 1,000 MG 2100 06/07 2100 DC 06/08 IV 205 Insulin Aspart 0 TIDAC 06/07 0800 AC 06/09 SC 0808 Metoprolol Succinate 50 MG DAILY 08/19 0900 AC 06/09 PO 0802 Review of Systems Review of Systems: Negative except as noted above. Has developed memory loss, confusion overlast several months. Past History Travel History Traveled to [place] past 21 day No Medical History Blood Transfusion Hx: No Neurological: TIA Cardiovascular: aortic aneurysm, AFIB, CAD, hypertension, hyperlipidemia, myocardial infarction Renal: chronic kidney disease Endocrine: diabetes Cancer(s): melanoma, prostate cancer Surgical History Surgical History: CABG, AAA repair rad seeds for CAP Family History Relations & Conditions If Any: FATHER FH: kidney failure BROTHER FH: myocardial infarction Psychosocial History Where Do You Live? Home Who Do You Live With? spouse Services at Home: None Primary Language: Brazilian Smoking Status: Never Smoked ETOH Use: denies use Illicit Drug Use: denies illicit drug use Functional Ability ADLs Independent: dressing, eating, toileting, bathing. Ambulation: cane IADLs Independent: shopping, housework, finances, food prep, telephone. Needs Assist: transportation, medication admin. Employment History Employment: Retired Profession/Employer: [employer] Exam & Diagnostic Data Vital Signs and I&O Vital Signs Date Time Temp Pulse Resp B/P B/P Pulse O2 O2 Flow FiO2 Mean Ox Delivery Rate 06/09 0803 98.4 60 18 138/72 94 06/09 0802 72 112/64 06/08 2212 98.2 76 17 134/88 95 06/08 1440 97.5 64 24 146/76 97 Intake & Output 06/09 1600 06/09 0400 06/08 1600 06/08 0400 06/07 1600 06/07 0400 Intake Total 321 433 4200 1000 Output Total 150 100 Balance 520 120 950 900 Intake, IV 500 1000 Intake, Oral 520 120 600 Number 1 Bowel Movements Output, Urine 150 100 Patient 140 lb 146 lb 139 lb Weight Weight Bed scale Measurement Method Physical Exam: NAD VS as above Eyes: anicteric, PERRLA Neck: negative mass, thryomegaly Nodes: negative inguinal, cervical Skin: no rash or induration Lungs: clear P& A CV: no rub or murmur Abd: nontender, no organomegaly, bowel sound positive Exts: no edema, absent pedal pulses. Neuro: not oriented to year or place, CN intact, no asterixis. Assessment/Plan Assessment/Recommendations Assessment: CKD probably from diabetes/hypertenision. Can't exclude some element or renal artery disease given AAA. Has elevated U pr/cr ratio although not nephrotic. Creatinine slightly higher in here, may be due to some volume depletion or just progression of underlying disease. Not obstructed. Recommendations: Would keep off RAAS inihibtion and Lasix for now. Check hepatitis serolgoies, SPEP. Will follow.
--- NOTE | 2018-06-09 11:07 | PN- Cardiology ---
Subjective Subjective: Patient without specific complaints. He denies chest discomfort. Nephrology input appreciated Review of Systems: Eyes no blurred or double vision Ears no deafness or ringing Nose and throat no recurrent sinusitis Lungs per history of present illness Heart per history of present illness Abdomen no nausea vomiting Musculoskeletal occasional muscle and joint pains Psych no anxiety or depression Neuro without recurrent headache or seizures Endocrine no heat or cold intolerance Objective Vital Signs and I&Os Vital Signs Date Time Temp Pulse Resp B/P B/P Pulse O2 O2 Flow FiO2 Mean Ox Delivery Rate 06/09 0803 98.4 60 18 138/72 94 06/09 0802 72 112/64 06/08 2212 98.2 76 17 134/88 95 06/08 1440 97.5 64 24 146/76 97 Intake & Output 06/09 0806/09 0000 06/08 0806/08 0000 Intake Total 400 120 120 Output Total Balance 400 120 120 Intake, Oral 400 120 120 Number 1 Bowel Movements Patient 140 lb 146 lb Weight Physical Exam: Patient is a well-developed well-nourished male appearing in no acute distress HEENT is unremarkable Neck is supple there is no JVD Lungs are clear Heart irregular rhythm S1 and S2 are normal no murmurs gallops or rubs Abdomen bowel sounds positive Extremities without edema Skin few ecchymoses noted Lymph no adenopathy Neuro no focal deficits Psych cooperative Current Medications: Current Medications Sig/Vic Start time Last Medication Dose Route Stop Time Status Admin Acetaminophen 650 MG Q6P PRN 06/07 0015 AC PO Amoxicillin/ 500 MG Q12H 06/09 1100 AC Clavulanate Potassium PO Aspirin Buffered 81 MG DAILY 06/07 09 AC 06/09 PO 0802 Atorvastatin Calcium 40 MG 1700 06/07 1700 AC 06/08 PO 1637 Ceftriaxone Sodium 1,000 MG 2100 06/07 2100 DC 06/08 IV 2059 Insulin Aspart 0 TIDAC 06/07 08 AC 06/09 SC 0808 Metoprolol Succinate 50 MG DAILY 06/07 09 AC 06/09 PO 0802 Results Last 48 Hrs of Labs/Mics: Laboratory Tests 06/09/18 0645: Anion Gap 11, Estimated GFR 32 L, BUN/Creatinine Ratio 32.0 H, PT 67.2 *H, INR 6.05 *H, CBC w Diff MAN DIFF ORDERED, RBC 3.39 L, MCV 93.9, MCH 31.5 H, MCHC 33.5, RDW 17.1 H, MPV 7.6, Gran % 87.2 H, Lymphocytes % 3.7 L, Monocytes % 9.0, Eosinophils % 0.1, Basophils % 0, Absolute Granulocytes 8.8 H, Segmented Neutrophils 89 H, Absolute Lymphocytes 0.4 L, Lymphocytes 3 L, Monocytes 7, Absolute Monocytes 0.9 H, Absolute Eosinophils 0, Absolute Basophils 0, Metamyelocytes 1, Nucleated RBCs 2 H, Platelet Estimate ADEQUATE, Polychromasia 1+, Poikilocytosis 1+, Anisocytosis 1+, Elliptocytes FEW 06/08/18 0620: Anion Gap 13, Estimated GFR 32 L, BUN/Creatinine Ratio 32.0 H, PT 57.2 *H, INR 5.16 *H, CBC w Diff MAN DIFF ORDERED, RBC 3.32 L, MCV 93.3, MCH 31.2 H, MCHC 33.5, RDW 17.0 H, MPV 7.5, Gran % 84.2 H, Lymphocytes % 5.5 L, Monocytes % 9.7 H, Eosinophils % 0.6, Basophils % 0, Absolute Granulocytes 6.6 H, Segmented Neutrophils 85 H, Absolute Lymphocytes 0.4 L, Lymphocytes 5 L, Monocytes 10 H, Absolute Monocytes 0.8 H, Absolute Eosinophils 0, Absolute Basophils 0, Nucleated RBCs 2 H, Platelet Estimate VERIFIED BY SMEAR, Polychromasia 1+, Poikilocytosis 1+, Anisocytosis 1+, Ovalocytes 1+, Eli Cells 1+ 06/07/18 1545: PT 45.7 *H, INR 4.13 *H Assessment/Plan Assessment/Plan 1. Symptomatic UTI 2. acute on chronic renal insufficiency 3. minimal troponin elevation likely due to renal insufficiency 4. Chronic atrial fibrillation on chronic anticoagulation with Coumadin currently on hold 5. permanent pacemaker in situ 6. history of coronary artery disease with remote CABG 7. History of aortic aneurysm with prior endovascular repair 8. Diabetes 9. history of asymptomatic NSVT Recommendations 1. Continue to monitor renal function 2. Echocardiogram is pending 3. Continue to hold Coumadin due to supratherapeutic INR 4. Continue metoprolol for rate control Continue telemetry? Yes
[2018-06-09 14:21] VITALS: BP 124/62
--- NOTE | 2018-06-09 15:02 | ECHOCARDIOGRAM REPORT ---
JERE LEVINE Age: 83 : 1935 Gender: M Exam Date: 06/08/2018 16:54 Exam Location: 1 [address] Ht (in): 64 Wt (lb): 138 BSA: 1.69 BP: 138 / 68 Ordering Physician: Harry Pitts MD Referring Physician: Romel Kirby M.D. Technologist: Marge Rodriguez [facility] Room Number: [id number] Indications: Afib/flutter Rhythm: Atrial fibrillation Technical Quality: fair FINDINGS Left Ventricle Normal size left ventricle. Left ventricular wall thickness mildly increased. Mildly abnormal left ventricular ejection fraction estimated at 40-45%. Right Ventricle Mild right ventricular dilatation. Reduced right ventricular global systolic function. Catheter/pacemaker wire in the right ventricular cavity. Right Atrium Mild right atrial dilatation. Left Atrium Mild to moderate left atrial dilatation. Mitral Valve Mild mitral annular calcification. Moderate mitral regurgitation. Aortic Valve Diffuse thickening (sclerosis) of the aortic valve cusps without reduced excursion. Kkrf-oq-sitykluu aortic regurgitation. Tricuspid Valve Tricuspid valve is normal in structure and function. Moderate tricuspid regurgitation. Right ventricular systolic pressure estimated to be elevated at greater than 60 mmHg. Pulmonic Valve Pulmonic valve not well visualized, grossly normal. Pericardium No pericardial effusion. Great Vessels Normal size aortic root. CONCLUSIONS Mildly reduced left ventricular systolic function with mild concentric hypertrophy. Dilated and hypokinetic Right ventricle. Severe Pulmonary hypertension. Moderate Mitral and tricuspid Regurgitation. Wilfred Nogueira M.D. (Electronically Signed) Final Date: 09 June 2018 14:58 MEASUREMENTS (Male / Female) Normal Values 2D ECHO LV Diastolic Diameter PLAX 4.0 cm 4.2 - 5.9 / 3.9 - 5.3 cm LV Systolic Diameter PLAX 2.8 cm 2.1 - 4.0 cm LV Fractional Shortening PLAX 30.0 % 25 - 46 % LV Ejection Fraction 2D Teich 57.8 % IVS Diastolic Thickness 1.4 cm LVPW Diastolic Thickness 1.4 cm LV Relative Wall Thickness 0.7 LVOT Diameter 2.1 cm Aortic Root Diameter 3.4 cm LA Volume 57.0 cm 18 - 58 / 22 - 52 cm Ascending Aorta Diameter 3.6 cm DOPPLER AV Peak Velocity 95.1 cm/s AV Peak Gradient 3.6 mmHg AV Mean Velocity 58.4 cm/s AV Mean Gradient 2.0 mmHg AV Velocity Time Integral 16.4 cm AI Deceleration [place] 133.0 cm/s AI Peak Velocity 356.0 cm/s AI Pressure Half Time 787.0 ms AI Peak Gradient 50.7 mmHg LVOT Peak Velocity 67.7 cm/s LVOT Peak Gradient 1.8 mmHg LVOT Mean Velocity 45.9 cm/s LVOT Mean Gradient 1.0 mmHg LVOT Velocity Time Integral 13.0 cm LVOT Stroke Volume 45.0 cm AV Area Cont Eq vti 2.7 cm AV Area Cont Eq pk 2.5 cm MV Peak Velocity 92.0 cm/s MV Peak Gradient 3.4 mmHg MV Mean Velocity 39.9 cm/s MV Mean Gradient 1.0 mmHg Mitral E Point Velocity 88.4 cm/s MV PHT Velocity 97.0 cm/s MV Deceleration [place] 787.0 cm/s MV Pressure Half Time 37.0 ms MV Area PHT 5.9 cm MV Deceleration Time 95.0 ms MR Peak Velocity 466.0 cm/s MR Peak Gradient 86.9 mmHg MR ERO PISA 0.3 cm MR Regurgitant Volume PISA 39.9 cm TR Peak Velocity 410.0 cm/s TR Peak Gradient 67.2 mmHg Right Atrial Pressure 5.0 mmHg Pulmonary Artery Systolic Pressure 72.2 mmHg Right Ventricular Systolic Pressure 72.2 mmHg PV Peak Velocity 70.3 cm/s PV Peak Gradient 2.0 mmHg PV Mean Velocity 46.8 cm/s PV Mean Gradient 1.0 mmHg PV Velocity Time Integral 14.1 cm
--- NOTE | 2018-06-09 19:29 | PN- Urology ---
Surgical Brief Attending Note Brief Attending Note: Pt resting comfortably: denies pain/sob. States he has voided easily throughtout the day without dysuria: however, felt weak and required assistance to BR. VSS afebrile abd: gas-distention but pain free; No cvat bladder NOT palpable/percussible Cv: rrr lungs: clear bilat. Labs reviewed=creat stable at 2.0 Plan: abx per med if no void over 6 hours, or if pt unable to void despite urge, recommend bladder scan, and if residual >100cc insert 16 or 18 fr. hyatt. Patient : JERE LEVINE Acct: [id number] DR: Krishna ROSEN, Bibiana Birthdate: [birth year] Age/Sex: 83/M Unit: [id number] Loc: [facility] [id number] Status : ADM IN SPEC #: [id number] MUKESH: 06/06/18 STATUS: COMP RECD: 06/06/[address]: Irene Kingsley SOURCE: URINE ROUT ENTR: 06/06/[address]: Nivia ROSEN,Lisy Owen SPDESC: URIN CLEAN David Corea DO ( [facility]) ORDERED: URINE CULTURE COMMENT: UC ADDED AT 221 PER SERA STEVENS Procedure Result > URINE CULTURE Final 06/08/18111 Greater than 100,000 colonies per ml of: KLEBSIELLA PNEUMONIAE 1. KLEBSIELLA PNEUMONIAE RX AB ------ -- AMPICILLIN R CEFAZOLIN S AMOXICILLIN/CLAVULINIC ACID S AMPICILLIN/SULBACTAM S CIPROFLOXACIN S GENTAMICIN S NITROFURANTOIN I TRIMETHOPRIM/SULFAMETHOXAZOLE S Note: Infectious Diseases Society of [place] Guidelines state that asymptomatic bacteriuria is not associated with any increase in morbidity or mortality in most patients and therefore treatment is usually not indicated unless patients are less than five years old, or about to undergo urological procedures. RECOMMEND: TX with abx per medicine
[2018-06-09 22:11] VITALS: BP 130/60
--- NOTE | 2018-06-10 07:21 | PN- Housestaff ---
Subjective Follow-up For: QUINTIN on CKD UTI AMS Oligouria Afib
[2018-06-10 07:31] VITALS: BP 136/70
[2018-06-10 08:59] LABS: PT 70.1 SEC (9.4-12.5)
--- NOTE | 2018-06-10 09:57 | PN- Housestaff ---
Harry Pitts 06/10/18 0954: Subjective Follow-up For: QUINTIN on CKD UTI AMS Urine retention Afib Subjective: Per nursing patient became very confused yesterday requiring a sitter. Patient is not oriented to place or time. He endorses that he is voiding on his own but per nursing he is incontinent and then isn't able to void in bathroom. Bladder scan to assess whether or not catheter can be placed, could not be performed because the device is broken. Review of Systems Constitutional: Reports: see HPI. Objective Last 24 Hrs of Vital Signs/I&O Vital Signs Date Time Temp Pulse Resp B/P B/P Pulse O2 O2 Flow FiO2 Mean Ox Delivery Rate 06/10 1453 97.6 75 20 130/68 06/10 1108 Room Air 06/10 1054 Room Air 06/10 1005 75 130/68 06/10 0731 97.6 84 20 136/70 94 Room Air Intake & Output 06/11 0800 06/11 0000 06/10 1600 Intake Total 800 Output Total Balance 800 Intake, Oral 800 Physical Exam General Appearance: Alert, Cooperative, No Acute Distress HEENT: Atraumatic, EOMI Neck: Supple, No JVD Cardiovascular: Normal S1, Normal S2 Lungs: Clear to Auscultation, Normal Air Movement Abdomen: Normal Bowel Sounds, Soft, No Tenderness Current Medications: Current Medications Sig/Vic Start time Last Medication Dose Route Stop Time Status Admin Acetaminophen 650 MG Q6P PRN 06/07 0015 DCD PO Amoxicillin/ 500 MG Q12H 06/09 1100 DCD 06/10 Clavulanate Potassium PO 1004 Aspirin Buffered 81 MG DAILY 06/07 09 DCD 06/10 PO 1004 Atorvastatin Calcium 40 MG 1700 06/07 1700 DCD 06/09 PO 1820 Insulin Aspart 0 TIDAC 06/07 0800 DCD 06/10 SC 1318 Metoprolol Succinate 50 MG DAILY 06/07 0900 DCD 06/10 PO 1005 Phytonadione 2.5 MG ONCE ONE 06/10 1445 DC 06/10 PO 06/10 1446 1456 Sodium Bicarbonate 325 MG TID 06/10 1400 DCD 06/10 PO 1317 Tramadol HCl 0 .STK-MED ONE 06/10 1810 DC PO Last 24 Hrs of Lab/Torres Results Last 24 Hrs of Labs/Mics: Laboratory Tests 06/10/18 0610: Anion Gap 11, Estimated GFR 34 L, BUN/Creatinine Ratio 35.8 H, Phosphorus 4.3, Magnesium 2.2 06/10/18 0610: Prot Electrophoresis Pending, Total Protein (PEP) Pending, Albumin % (PEP) Pending, Phejo-0-Rfyvjbidv Pending, Ebvlf-7-Xisdobqto Pending, Zybn-7-Azhkmxzm Pending, Lidd-4-Hpkytlyn Pending, Gamma Globulins Pending, Abnorm Protein Band 1 Pending, Abnorm Protein Band 2 Pending, Abnorm Protein Band 3 Pending, PT 70.1 * H, INR 6.31 *H, Hepatitis A IgM Ab NONREACTIVE, Hep Bs Antigen NONREACTIVE, Hep B Core IgM Ab Conf NONREACTIVE, Hepatitis C Antibody NONREACTIVE Assessment/Plan Assessment: 83 year old male with PMH significant for atrial fibrillation on coumadin s/p PPM 2013, HTN, HLD, DM, CAD s/p CABG ~1999, CKD Stage III, TIA, AAA repair, and prostate cancer s/p radiation ~5-6 years ago presents with complaints of worsening dysuria and urinary frequency and one day history of diarrhea. It seems that patient is oligouric considering PVR yahaira 145 cc. 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 Likely etiology for his trops as well. Also noted, patient appears to have increasing confusion. He is on and off with his orientation. Patient is stable to be discharged to [facility] today to work on conditioning. Urinary tract infection: History of prostate cancer s/p radiation Urinalysis >75WBCs, positive nitrite and leukocyte esterase No fever or CVA tenderess CT abdomen negative for hydronephrosis, perinephric stranding or nephrolithiasis Amoxicillin/Clauvinic Acid Urine culture positive for Klebsiella Pneumoniae Dr Jang recommends straight cath if PVR >100 or urge White count increasing gradually (still wnl) Supratherapeutic INR Most likely seondary to antibiotic use Hold Coumadin Give dose of Vit K 2.5 mg today Elevated troponins: History of CAD s/p CABG Mildly elevated to 0.13 in the setting of infection and elevated creatinine proBNP significantly elevated to 34,000, but no evidence of heart failure, lasix held No acute ischemic EKG changes, give ASA 325mg in the ED No complaints of chest pain or cardiovascular symptoms, possible type II NSTEMI Continue metoprolol XL Continue aspirin 81mg and atorvastatin Acute kidney injury on chronic kidney disease stage III: Creatinine 1.9 today, likely prerenal with diarrhea Baseline is ~1.5 CT Abdomen Pelvis shows no hydronephrosis Bladder ultrasound < 200cc of retained urine post void Avoid nephrotoxins NS fluids stopped due to pt clinically presenting volume overloaded Nephro recs appreciated Continue to hold RAAS inhibtion, and Lasix Hepatitis serologies, SPEP Hep panel as negative ACEi can be resumed Hyperkalemia: Mildly elevated to 5.4 -> 5.5 -> 5.2 Hold potassium supplementation (normally takes with furosemide at home) Follow up [facility] outpatient Atrial fibrillation: s/p PM 2013 Coumadin per INR Continue metoprolol for rate control Echocardiogram results can be followed up outpatient HTN: Hold Lasix per Cardiology Continue metoprolol HLD: Atorvastatin 40mg started DM: Accuchecks TIDAC/HS Hold metformin and glipizide Start sliding scale insulin Problem List: 1. QUINTIN (acute kidney injury) 2. UTI (urinary tract infection) 3. Subtherapeutic anticoagulation Pain Ratin Pain Location: n/a Pain Goal: Remain pain free Pain Plan: per pathway Tomorrow's Labs & Rationales: none Krishna ROSEN,Bibiana 06/10/18 1448: Attending MD Review Statement Attending Statement Attending MD Statement: examined this patient, discuss w/resident/PA/MEDICAL CODING TECHNICIAN, agreed w/resident/PA/MEDICAL CODING TECHNICIAN, discussed with family, reviewed EMR data (avail), discussed with nursing, discussed with case mgmt, amended to note Attending Assessment/Plan: Patient seen and examined. Resting comfortably not in acute distress. Some periods of confusion on and off reported by nursing staff. This is baseline per family members. This morning is alert and oriented 3. Conversant appropriately. Not in any respiratory distress. Denies any dysuria at present. He is afebrile hemodynamically stable. He is medically stable to be discharged today to continue on oral antibiotic therapy for urinary tract infection. His INR unfortunately continues to trend upwards despite holding his Coumadin. In order to avoid ongoing upward trend due to his ongoing antibiotic requirement we will administer a small dose of vitamin K 2.5 mg orally today. Recommend that his INR should be repeated in 48 hours and Coumadin resumed once INR is less than 2.9. Patient continue antibiotic therapy to complete 7 days of treatment. Echocardiogram shows mild reduction of his ejection fraction. This was discussed with the cardiology service. We will resume his MIHAI inhibitor dose. We will however hold his diuretics in order to avoid further worsening of his chronic kidney disease stage III. He is to follow-up with his cardiology service as an outpatient for monitoring.
[2018-06-10] MEDS ORDERED: AUGMENTIN 500-1 EACH PO (11:30)
[2018-06-10] MEDS ORDERED: ATORVASTATIN CA40 M1 PO (11:30)
[2018-06-10] MEDS ORDERED: ASPIRIN EC81 M1 PO (11:30)
--- NOTE | 2018-06-10 11:41 | Patient Discharge Instructions ---
Discharge Instructions General Discharge Information You were seen/treated for: QUINTIN on CKD UTI Urinary Retention Watch for these problems: Flank pain, headache, fever, chills, burning during urination, inability to make urine, decreased urine output, come back to the ER. Special Instructions: Follow-up with PCP in 1 week. We held your coumadin because your INR is higher than the therapeutic range. Do not take coumadin unless INR is down to therapeutic range(2-3). Recheck INR on 06/12/18 Please repeat your blood work on 06/15/18. Follow up with in flight refueling system repairer () rergarding echo results in one week. Follow up with nephrology (Dr. Fields) in one week, regarding abnormal renal function. Follw up with urology (Dr. Ngo) in one week. Diet Continue normal diet: Yes Activity Full Activity/No Limits: Yes (Self limited) Acute Coronary Syndrome Inclusion Criteria At DC or during hospital stay patient has or had the following: ACS DIAGNOSIS No Discharge Core Measures Meds if any: Prescribed or Continued at Discharge Meds if any: NOT Prescribed or Continued at Discharge Congestive Heart Failure Inclusion Criteria At DC or during hospital stay patient has or had the following: CHF DIAGNOSIS No Discharge Core Measures Meds if any: Prescribed or Continued at Discharge Meds if any: NOT Prescribed or Continued at Discharge Cerebrovascular accident Inclusion Criteria At DC or during hospital stay patient has or had the following: CVA/TIA Diagnosis No Discharge Core Measures Meds if any: Prescribed or Continued at Discharge Meds if any: NOT Prescribed or Continued at Discharge Venous thromboembolism Inclusion Criteria VTE Diagnosis No VTE Type NONE VTE Confirmed by (Test) NONE Discharge Core Measures - Per Current guidelines, there needs to be overlap - treatment for the first 5 days of Warfarin therapy. - If discharged on Warfarin prior to 5 days of - overlap therapy, the patient will need to be - assessed for post discharge needs including - *Post discharge parental anticoagulation - *Warfarin and/or parental anticoagulation education - *Follow up date to check INR post discharge At least 5 days overlap therapy as Inpatient No Meds if any: Prescribed or Continued at Discharge Note: Overlap Therapy is Warfarin and Anticoagulant Meds if any: NOT Prescribed or Continued at Discharge
--- NOTE | 2018-06-10 11:43 | PN- Cardiology ---
Subjective Subjective: Patient is resting comfortably. Denies any chest pain, dyspnea, or palpitations. Objective Vital Signs and I&Os Vital Signs Date Time Temp Pulse Resp B/P B/P Pulse O2 O2 Flow FiO2 Mean Ox Delivery Rate 06/10 1108 Room Air 06/10 1054 Room Air 06/10 1005 75 130/68 06/10 0731 97.6 84 20 136/70 94 Room Air 06/09 2211 98.2 71 22 130/60 94 Room Air 06/09 2000 Room Air 06/09 1421 97.4 60 18 124/62 95 Room Air Intake & Output 06/10 1600 06/10 0800 06/10 0000 06/09 1600 06/09 0800 06/09 0000 Intake Total 900 Output Total Balance 900 Intake, Oral 900 Number 1 Bowel Movements Patient 140 lb Weight Physical Exam: General: no apparent distress. Alert. Eyes: No obvious scleral icterus. HEENT: No jugular venous distention or abnormal jugular venous pulsations. Cardiovascular: Normal intensity S1/S2. Irregular , permanent pacemaker noted Respiratory: Lungs clear to auscultation bilaterally. Abdomen: Soft, nontender with no guarding or rebound tenderness. Musculoskeletal: No clubbing or cyanosis noted: No edema Skin: warm Current Medications: Current Medications Sig/Vic Start time Last Medication Dose Route Stop Time Status Admin Acetaminophen 650 MG Q6P PRN 06/07 0015 AC PO Amoxicillin/ 500 MG Q12H 06/09 1100 AC 06/10 Clavulanate Potassium PO 1004 Aspirin Buffered 81 MG DAILY 06/07 0900 AC 06/10 PO 1004 Atorvastatin Calcium 40 MG 1700 06/07 1700 AC 06/09 PO 1820 Insulin Aspart 0 TIDAC 06/07 08 AC 06/09 SC 1820 Metoprolol Succinate 50 MG DAILY 06/07 0900 AC 06/10 PO 1005 Results Last 48 Hrs of Labs/Mics: Laboratory Tests 06/10/18 0610: Anion Gap 11, Estimated GFR 34 L, BUN/Creatinine Ratio 35.8 H, Phosphorus 4.3, Magnesium 2.2 06/10/18 0610: Prot Electrophoresis Pending, Total Protein (PEP) Pending, Albumin % (PEP) Pending, Oijch-1-Ehyojutya Pending, Cyfim-4-Toknvphdu Pending, Dmwc-7-Ilzqbevd Pending, Sygc-3-Btashssv Pending, Gamma Globulins Pending, Abnorm Protein Band 1 Pending, Abnorm Protein Band 2 Pending, Abnorm Protein Band 3 Pending, PT 70.1 * H, INR 6.31 *H, Hepatitis A IgM Ab NONREACTIVE, Hep Bs Antigen NONREACTIVE, Hep B Core IgM Ab Conf NONREACTIVE, Hepatitis C Antibody NONREACTIVE 06/09/18 1623: Prot Electrophoresis Cancelled, Total Protein (PEP) Cancelled, Albumin % (PEP) Cancelled, Dvlqs-6-Zuxhgjzot Cancelled, Zynkq-8-Mopzfeqbz Cancelled, Beta-1- Globulin Cancelled, Qdxl-9-Jjpmfcje Cancelled, Gamma Globulins Cancelled, Abnorm Protein Band 1 Cancelled, Abnorm Protein Band 2 Cancelled, Abnorm Protein Band 3 Cancelled 06/09/18 1620: Hepatitis A IgM Ab Cancelled, Hep Bs Antigen Cancelled, Hep B Core IgM Ab Conf Cancelled, Hepatitis C Antibody Cancelled 06/09/18 0645: Anion Gap 11, Estimated GFR 32 L, BUN/Creatinine Ratio 32.0 H, PT 67.2 *H, INR 6.05 *H, CBC w Diff MAN DIFF ORDERED, RBC 3.39 L, MCV 93.9, MCH 31.5 H, MCHC 33.5, RDW 17.1 H, MPV 7.6, Gran % 87.2 H, Lymphocytes % 3.7 L, Monocytes % 9.0, Eosinophils % 0.1, Basophils % 0, Absolute Granulocytes 8.8 H, Segmented Neutrophils 89 H, Absolute Lymphocytes 0.4 L, Lymphocytes 3 L, Monocytes 7, Absolute Monocytes 0.9 H, Absolute Eosinophils 0, Absolute Basophils 0, Metamyelocytes 1, Nucleated RBCs 2 H, Platelet Estimate ADEQUATE, Polychromasia 1+, Poikilocytosis 1+, Anisocytosis 1+, Elliptocytes FEW Recent Imaging Studies: Telemetry tracings were personally reviewed and shows atrial fibrillation with nonsustained ectopic runs Echocardiogram Mildly reduced left ventricular systolic function with mild concentric hypertrophy. Dilated and hypokinetic Right ventricle. Severe Pulmonary hypertension. Moderate Mitral and tricuspid Regurgitation. Assessment/Plan Assessment/Plan 1. Symptomatic UTI 2. acute on chronic renal insufficiency 3. minimal troponin elevation likely due to renal insufficiency 4. Chronic atrial fibrillation on chronic anticoagulation with Coumadin currently on hold 5. permanent pacemaker in situ 6. history of coronary artery disease with remote CABG 7. History of aortic aneurysm with prior endovascular repair 8. Diabetes 9. history of asymptomatic NSVT 10. Mild biventricular dysfunction by echo Patient denies any chest pain, dyspnea, or palpitations. He is in atrial fibrillation with grossly controlled ventricular response rate. INR remains supratherapeutic. Echocardiogram as above; continue on the beta-michael but would not give MIHAI inhibitor given the renal dysfunction. He may be a candidate for outpatient nuclear stress testing in the future. Oumar Kirby MD [facility] Continue telemetry? Yes
--- NOTE | 2018-06-10 12:26 | PN- Nephrology ---
Assessment/Plan Nephrology Assessment: CKD, may at baseline renal function. Has mild hyperkalemia and worsening acidosis. Suggestion: Will start on some oral bicarb which should help with acidosis and hyperkalemia. As creatinine stable could restart his RAAS inhibitor. Subjective Subjective: Eating lunch, no new complaints. Objective Vital Signs and I&Os Vital Signs Date Time Temp Pulse Resp B/P B/P Pulse O2 O2 Flow FiO2 Mean Ox Delivery Rate 06/10 1108 Room Air 06/10 1054 Room Air 06/10 1005 75 130/68 06/10 0731 97.6 84 20 136/70 94 Room Air 06/09 2211 98.2 71 22 130/60 94 Room Air 06/09 2000 Room Air 06/09 1421 97.4 60 18 124/62 95 Room Air Intake & Output 06/10 1600 06/10 0400 06/09 1600 06/09 0400 06/08 1600 06/08 0400 Intake Total 900 520 120 Output Total Balance 900 520 120 Intake, Oral 900 520 120 Number 1 Bowel Movements Patient 140 lb 146 lb Weight Physical Exam: NAD VS as above Lungs: clear CV: no rub Abd: nontender Exts: no edema Neuro: convused. Current Medications: Current Medications Sig/Vic Start time Last Medication Dose Route Stop Time Status Admin Acetaminophen 650 MG Q6P PRN 06/07 0015 AC PO Amoxicillin/ 500 MG Q12H 06/09 1100 AC 06/10 Clavulanate Potassium PO 1004 Aspirin Buffered 81 MG DAILY 06/07 09 AC 06/10 PO 1004 Atorvastatin Calcium 40 MG 1700 06/07 1700 AC 06/09 PO 1820 Insulin Aspart 0 TIDAC 06/07 08 AC 06/09 SC 1820 Metoprolol Succinate 50 MG DAILY 06/07 0900 AC 06/10 PO 1005 Sodium Bicarbonate 325 MG TID 06/10 1400 AC PO Results Pertinent Lab Results: Laboratory Tests 06/10 06/10 06/09 06/09 0610 0610 1623 1620 Chemistry Sodium (137 - 145 mmol/L) 138 Potassium (3.5 - 5.1 mmol/L) 5.2 H Chloride (98 - 107 mmol/L) 111 H Carbon Dioxide (22 - 30 mmol/L) 16 L Anion Gap (5 - 16) 11 BUN (9 - 20 mg/dL) 68 H Creatinine (0.7 - 1.2 mg/dL) 1.9 H Estimated GFR (>60 ml/min) 34 L BUN/Creatinine Ratio (7 - 25 %) 35.8 H Phosphorus (2.5 - 4.5 mg/dL) 4.3 Magnesium (1.6 - 2.3 mg/dL) 2.2 Prot Electrophoresis Pending Cancelled Total Protein (PEP) Pending Cancelled Albumin % (PEP) Pending Cancelled Bflwv-3-Srphezhtw Pending Cancelled Wncne-2-Qhuzdvssi Pending Cancelled Xxxp-3-Vwmrpske Pending Cancelled Lppw-9-Hosorpkl Pending Cancelled Gamma Globulins Pending Cancelled Abnorm Protein Band 1 Pending Cancelled Abnorm Protein Band 2 Pending Cancelled Abnorm Protein Band 3 Pending Cancelled Coagulation PT (9.4 - 12.5 SEC) 70.1 *H INR (0.90 - 1.17) 6.31 *H Serology Hepatitis A IgM Ab (NONREACTIVE) NONREACTIVE Cancelled Hep Bs Antigen (NONREACTIVE) NONREACTIVE Cancelled Hep B Core IgM Ab Conf (NONREACTIVE) NONREACTIVE Cancelled Hepatitis C Antibody (NONREACTIVE) NONREACTIVE Cancelled 06/09 06/08 0645 0620 Chemistry Sodium (137 - 145 mmol/L) 140 139 Potassium (3.5 - 5.1 mmol/L) 5.3 H 5.5 H Chloride (98 - 107 mmol/L) 111 H 110 H Carbon Dioxide (22 - 30 mmol/L) 17 L 16 L Anion Gap (5 - 16) 11 13 BUN (9 - 20 mg/dL) 64 H 64 H Creatinine (0.7 - 1.2 mg/dL) 2.0 H 2.0 H Estimated GFR (>60 ml/min) 32 L 32 L BUN/Creatinine Ratio (7 - 25 %) 32.0 H 32.0 H Coagulation PT (9.4 - 12.5 SEC) 67.2 *H 57.2 *H INR (0.90 - 1.17) 6.05 *H 5.16 *H Hematology CBC w Diff MAN DIFF ORDERED MAN DIFF ORDERED WBC (4.8 - 10.8 /CUMM) 10.1 7.9 RBC (4.70 - 6.10 /CUMM) 3.39 L 3.32 L Hgb (14.0 - 18.0 G/DL) 10.7 L 10.4 L Hct (42 - 52 %) 31.8 L 31.0 L MCV (80.0 - 94.0 FL) 93.9 93.3 MCH (27.0 - 31.0 PG) 31.5 H 31.2 H MCHC (33.0 - 37.0 G/DL) 33.5 33.5 RDW (11.5 - 14.5 %) 17.1 H 17.0 H Plt Count (130 - 400 /CUMM) 228 239 MPV (7.4 - 10.4 FL) 7.6 7.5 Gran % (42.2 - 75.2 %) 87.2 H 84.2 H Lymphocytes % (20.5 - 51.1 %) 3.7 L 5.5 L Monocytes % (1.7 - 9.3 %) 9.0 9.7 H Eosinophils % (0 - 5 %) 0.1 0.6 Basophils % (0.0 - 2.0 %) 0 0 Absolute Granulocytes (1.4 - 6.5 /CUMM) 8.8 H 6.6 H Segmented Neutrophils (42.2 - 75.2 %) 89 H 85 H Absolute Lymphocytes (1.2 - 3.4 /CUMM) 0.4 L 0.4 L Lymphocytes (20.5 - 51.1 %) 3 L 5 L Monocytes (1.7 - 9.3 %) 7 10 H Absolute Monocytes (0.10 - 0.60 /CUMM) 0.9 H 0.8 H Absolute Eosinophils (0.0 - 0.7 /CUMM) 0 0 Absolute Basophils (0.0 - 0.2 /CUMM) 0 0 Metamyelocytes (0.0 - 1.0 %) 1 Nucleated RBCs (0.0 - 0.0 /100WBC) 2 H 2 H Platelet Estimate (ADEQUATE) ADEQUATE VERIFIED BY SMEAR Polychromasia 1+ 1+ Poikilocytosis 1+ 1+ Anisocytosis 1+ 1+ Ovalocytes 1+ [place] Cells 1+ Elliptocytes FEW 06/07 1545 Coagulation PT (9.4 - 12.5 SEC) 45.7 *H INR (0.90 - 1.17) 4.13 *H
--- NOTE | 2018-06-10 13:06 | Discharge Summary ---
Visit Information Visit Dates Admission Date: 06/06/18 Discharge Date: 06/10/18 Hospital Course Course Attending Physician: Bibiana Keller MD Primary Care Physician: Lisy Gonzáles MD Hospital Course: 83 year old male with PMH significant for atrial fibrillation on coumadin s/p PPM 2013, HTN, HLD, DM, CAD s/p CABG ~1999, CKD Stage III, TIA, AAA repair, and prostate cancer s/p radiation ~5-6 years ago presents with complaints of worsening dysuria and urinary frequency and one day history of diarrhea. Patient was admitted to the telemetry floor for the management of following issues; 1. Elevated troponins: Patient had elevated troponins of 0.13 on admission without any EKG changes. Cardiology consult was called and troponins were repeated until peak. Elevated troponins were thought to be secondary to decreased clearance in the setting of QUINTIN. Echocardiogram was obtained which showed slightly reduced ejection fraction of 40-45% without any regional wall motion abnormalities. Lisinopril was initially held because of petechiae but was resumed on discharge. Home medications including aspirin and metoprolol were continued. 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 Urinary tract infection: Patient was also started on IV ceftriaxone for UTI, later switched to Augmentin after urine culture grew Klebsiella sensitive to Augmentin. Patient was discharged on Augmentin to complete a 7 day course of antibiotics. CT abdomen was negative for any hydronephrosis, perinephric stranding or nephrolithiasis. Acute kidney injury on chronic kidney disease stage III: Creatinine level was elevated at 2.0(baseline around 1.5) on admission, intially thought to be prerenal given diarrhea. Patient was started on IV fluids but stopped for concerns of fluid overload. CT abdomen and pelvis did not show any signs of obstruction. Urology consult was obtained who recommended putting in a Morris if patient had greater than 100 mL's of residual urine on bladder scan but patient was not found to have any urinary retention. Nephrology consult was also obtained, thought patient had worsening renal function likely secondary to long- standing diabetes/hypertension. Hepatitis serologies(negative) and SPEP(pending ) were obtained. Lasix and lisinopril were held but lisinopril was resumed on discharge. Creatinine remained stable at the time of discharge at 1.9. Patient was discharged with outpatient follow-up with nephrology and repeat BP on . Supratherapeutic INR Most likely seondary to antibiotic use, Coumadin was held during his hospital stay. Patient advised not to take Coumadin until INR back to therapeutic range( 2-3), repeat INR on 06/12/18. Altered mental status; Patient was also noted to have increasing confusion. Patient has baseline confusion on and off per the which could be exacerbated secondary to current UTI and hospital stay. Diarrhea: C. diff was obtained which remained negative. Diarrhea resolved at the time of discharge. Hyperkalemia: Potassium level was mildly elevated(5.3-5.5). Potassium supplements were held and levels were monitored. Atrial fibrillation: Metoprolol was continued and Coumadin was held because of supratherapeutic INR. HTN: Lisinopril was resumed on discharge and Lasix held per Cardiology. Metoprolol was continued. HLD: Atorvastatin 40 mg daily was continued. DM: Metformin and glipizide were held and patient was kept on insulin sliding scale during his hospital stay. Oral hypoglycemics were resumed on discharge. Allergies: Coded Allergies: NO KNOWN ALLERGIES (12/03/11) Significant Procedures: CXR IMPRESSION: Stable mildly enlarged cardiac silhouette. No acute airspace disease. CT ABD & PELVIS W/O IV CONTRAST IMPRESSION: Nonspecific stranding about the urinary bladder wall. There is mild urinary bladder wall thickening in the setting of a partially filled urinary bladder. This is nonspecific, though consider correlation with urinalysis to evaluate for signs of cystitis. Sigmoid diverticulosis without evidence of diverticulitis. Abdominal aortic aneurysm with an aortobifemoral stent in place. ECHOCARDIOGRAM CONCLUSIONS Mildly reduced left ventricular systolic function with mild concentric hypertrophy. Dilated and hypokinetic Right ventricle. Severe Pulmonary hypertension. Moderate Mitral and tricuspid Regurgitation. Disposition Summary Disposition Principal Diagnosis: Elevated troponins QUINTIN on CKD UTI AMS Supratherapeutic INR Diarrhea Hyperkalemia Chronic medical conditions Additional Diagnosis: As above Discharge Disposition: SNF Discharge Instructions General Discharge Information Code Status: Full Code Patient's Diet: Heart Healthy Patient's Activity: As tolerated. Follow-Up Instructions/Appts: Follow-up with PCP in 1 week after discharge. Follow up with reconditioning associate (), nephrology (Dr. Fields) and urology ( Dr. Ngo) in a week after discharge. Advised to repeat blood work on 06/15/18 and repeat INR on 06/12/18. Patient told not not take coumadin unless INR is down to therapeutic range(2-3). Medications at Discharge Discharge Medications: Stop taking the following medications: Warfarin Sodium (Warfarin Sodium) 5 MG TABLET ORAL DAILY Qty = 30 Potassium Chloride (Potassium Chloride) (Unknown Strength) TABLET.ER ORAL DAILY Qty = 30 Continue taking these medications: Glipizide (Glipizide) 5 MG TABLET 1 Tablet ORAL TWICE DAILY Qty = 30 Comments: NOT GIVEN NOVOLOG USED IN HOSPITAL Lisinopril (Lisinopril) 5 MG TABLET 1 Tablet ORAL DAILY Qty = 90 Comments: NOT GIVEN Metformin HCl (Metformin HCl) 1,000 MG TABLET 1 Tablet ORAL TWICE DAILY Qty = 180 Comments: NOT GIVEN Metoprolol Succinate (Metoprolol Succinate) 50 MG TAB.ER.24H 1 Tablet ORAL DAILY Qty = 90 Comments: Last Taken: 06/10/18 Time: 10:00 AM Furosemide (Furosemide) 20 MG TABLET 1 Tablet ORAL DAILY Qty = 35 Comments: NOT GIVEN Loperamide HCl (Loperamide) 2 MG CAPSULE 1 Capsule ORAL DAILY Comments: NOT GIVEN Multiple Vitamin (Multivitamins) 1 EACH TABLET 1 Tablet ORAL DAILY Comments: NOT GIVEN Calcium (Elemental-Fr Calcarb) (Calcium) (Unknown Strength) TABLET Unknown Dose ORAL DAILY Comments: NOT GIVEN Start taking the following new medications: Augmentin (Augmentin 500-125 Tablet) 500 MG-125 MG TABLET 1 Tablet ORAL TWICE DAILY Qty = 5 No Refills Instructions: Take twice a day for 2 1/2 days Comments: Last Taken: 06/10/18 Time: 10:00 AM Atorvastatin Calcium (Atorvastatin Calcium) 40 MG TABLET 1 Milligram ORAL DAILY Qty = 30 No Refills Comments: Last Taken: 06/09/18 Time: 6:30 PM Aspirin (Ecotrin*) 81 MG TABLET.DR 1 Tablet ORAL DAILY Qty = 30 No Refills Comments: Last Taken: 06/10/18 Time: 10:00 AM Sodium Bicarbonate (Sodium Bicarbonate) 325 MG TABLET 1 Tablet ORAL THREE TIMES DAILY Qty = 90 No Refills Comments: Last Taken: 06/10/18 Time: 1:15 PM Copies To: Donnie ROSEN,Eben Sesay Nivia ROSEN,Lisy Owen; Huebr ROSEN,Karthik Attending MD Review Statement Documenting Attending: Bibiana Keller MD Other Findings: Discharged in stable condition.
[2018-06-10] MEDS ORDERED: SODIUM BICARBO325 M1 PO (14:32)
[2018-06-10 14:53] VITALS: BP 130/68
== END 2018-06-10 15:15 | DRG 690 ==
LOC: ERH 18:40 → ERHI 22:41 → 1NO 22:41 → ENRESERV 22:58 → 1NO 06-07 00:43 → ENPENDDIS 06-10 14:40 → 1NO 06-10 15:15
PROVIDERS: Physician Assistant; Preventive Medicine Public Health & General Preventive Medicine; Student in an Organized Health Care Education/Training Program
DX: N39.0 Urinary tract infection, site not specified (principal); Z79.84 Long term (current) use of oral hypoglycemic drugs; I48.2 Chronic atrial fibrillation; Z79.01 Long term (current) use of anticoagulants; E87.5 Hyperkalemia; I12.9 Hypertensive chronic kidney disease with stage 1 through stage 4 chronic kidney disease, or unspecified chronic kidney disease; E11.22 Type 2 diabetes mellitus with diabetic chronic kidney disease; N18.3 Chronic kidney disease, stage 3 (moderate); R00.0 Tachycardia, unspecified; B96.1 Klebsiella pneumoniae [K. pneumoniae] as the cause of diseases classified elsewhere; T36.1X5A Adverse effect of cephalosporins and other beta-lactam antibiotics, initial encounter; E78.5 Hyperlipidemia, unspecified; Z85.46 Personal history of malignant neoplasm of prostate; R19.7 Diarrhea, unspecified; R79.89 Other specified abnormal findings of blood chemistry; I25.10 Atherosclerotic heart disease of native coronary artery without angina pectoris; Z95.1 Presence of aortocoronary bypass graft; Z86.73 Personal history of transient ischemic attack (TIA), and cerebral infarction without residual deficits; I25.2 Old myocardial infarction; Z87.891 Personal history of nicotine dependence; Z95.0 Presence of cardiac pacemaker; R79.1 Abnormal coagulation profile
CPT/HCPCS: 1NSP; 84133; 84300; ERO; 36592; 71046; 74176; 81001; 82436; 82570; 84165; 87040; 87086; 93005; 93010; 93306; 96361; 96374; 97110-GO; 97116-GO; 97161-GP; J0696; J3490